=== PATIENT | male | born 1980 | race Caucasian/White ===

== ENCOUNTER → 2016-09-15 | Outpatient (CLI) | payer OTHER | END | disposition home or self-care (01) | LOC: C.PATHSPEC 18:01 | PROVIDERS: ATTEND Urology | DX: Z30.2 Encounter for sterilization (principal) ==

== ENCOUNTER 2024-05-31 09:31 | Inpatient (IN) ==
--- NOTE | 2024-05-31 09:42 | Emergency Department Note ---
Impression & Plan Community acquired pneumonia, Dyspnea, Fever ED Provider Note NAME: ANDREW FERNANDEZ AGE: 43 SEX: M : 1980 ARRIVES VIA: Walk-In INFORMANT: Patient, ED PROVIDER(S): Stuart Pineda MD CHIEF COMPLAINT: Cough, fever MEDICAL DECISION MAKING: Patient presents due to concern for cough and fever. IV was established and blood work was obtained. Patient was ordered a breathing treatment as well as a BioFire. Patient did receive a DuoNeb treatment. Patient's blood work shows a normal white count hemoglobin virtually normal with thrombocytosis of 455. Kidney function is unremarkable to electrolytes. Troponin not elevated. BioFire negative. The patient may have evidence of bilateral pneumonia. More prominent on the right side. Patient thought that he may have had an episode of syncope during the breathing treatment and a coughing fit. The patient is awake alert following commands. Episode is brief. Repeat EKG obtained and unremarkable. Patient did undergo an ambulatory pulse ox trial. Never did desat was in the low 90s at 9192% but was feeling particularly dyspneic and feeling as though he might pass out. Given these concerns he did not want a go home and requested admission. Patient was ordered IV Rocephin and p.o. doxycycline. I did speak the on-call hospital service and the patient was admitted to the medicine service after speaking with Curtis Urrutia PA-C and Dr. Stallings. Discussion w/ other healthcare providers: Anibal Urrutia PA-C and Dr. Stallings Prior /Outside records reviewed: None Differential diagnosis: Bronchitis, pneumonia, pneumothorax, pneumonitis, pleural effusion, parapneumonic effusion amongst others were considered Diagnostics, as interpreted by me: ECG: Normal sinus rhythm, rate of 96, normal intervals, normal axis no ST elevations. Repeat EKG interpreted by myself Normal sinus rhythm, rate of 90, normal intervals, normal axis no ST elevations. Cardiac monitoring: An order was placed for continuous cardiac monitoring. The monitor shows a rate of 92 with sinus rhythm. Patient was placed on pulse oximetry Medical decision rules: None Imaging studies: I informally interpreted the patient's chest x-ray does show likely right-sided pneumonia with formal report to follow. HPI: Patient presents due to concern for feeling generally unwell. The patient reports that he had some associated fever as well as cough and congestion. Patient states he initially began having symptoms on May 20 and developed a fever of 102 on the . The patient has had fever the last 3 days. Patient reports that he has been taking antipyretics at home. He has been taking some Mucinex coughing up productive thick sputum. Non-smoker. He does work outside at the skilled nursing. He was started on Augmentin through his PCP on the and subsequently added doxycycline yesterday. He reportedly did have a chest x-ray as well as blood work. Sats yesterday were 99% today they were as low as 91 to 92%. Patient denies any urinary symptoms. He denies any ear pain or sore throat. He initially did think he had some postnasal drip but it seems to be a bit deeper now into his chest. Patient denies any issues with defecation or urination no leg swelling or calf pain. PAST MEDICAL HISTORY: See Below PAST SURGICAL HISTORY: No pertinent surgical history. SOCIAL HISTORY: See Below HOME MEDICATIONS: See Below ALLERGIES: See Below VITALS: See Below PHYSICAL EXAMINATION: GENERAL: NAD, non-toxic. Wearing a mask. EYE EXAM: Normal conjunctiva. PERRL, no anisocoria and EOM's grossly intact w/o pain. OROPHARYNX: Moist mucus membranes, grossly normal dentition. NECK: Trachea midline, no stridor. Supple, no nuchal rigidity, no adenopathy, non-tender. No signs of meningismus. FROM of the neck with good chin to chest and neck extension. LUNGS: Crackles in the left upper chest. Normal chest wall mechanics. HEART: NSR, no MRG. ABDOMEN: Abdomen soft, non-tender, no masses, no rebound or guarding. BACK: No CVA TTP. SKIN: No rashes and no bruising. UPPER EXTREMITIES: Upper extremities are grossly normal. LOWER EXTREMITIES: Grossly normal, no edema. NEURO EXAM: A&O x3, cranial nerves II-XII grossly intact, normal speech, moves all 4 extremities. Past Med/Surg History Problem List (Updated 05/31/24 @ 14:12 by Stuart Pineda MD) Fever (Acute) Dyspnea (Acute) Community acquired pneumonia (Acute) Medical History Dyslipidemia JONI on CPAP Social History Smoking Status: Never smoker Feels Safe at Home: Yes Allergies Allergies Allergy/AdvReac Type Severity Reaction Status Date / Time bee venom protein (honey bee) Allergy Severe SOB/Hives/S Unverified 05/31/24 12:11 [place] Home Meds Home Medications Medication Instructions Recorded Confirmed amoxicillin 875 mg-potassium 1 tab PO BID 05/31/24 05/31/24 clavulanate 125 mg tablet ascorbic acid (vitamin C) 500 mg 500 mg PO DAILY 05/31/24 05/31/24 tablet (Vitamin C) benzonatate 100 mg capsule 100 mg PO TID PRN Cough 05/31/24 05/31/24 cholecalciferol (vitamin D3) 25 25 mcg PO DAILY 05/31/24 05/31/24 mcg (1,000 unit) tablet (Vitamin D3) coQ10 (ubiquinol) 100 mg capsule 100 mg PO BID 05/31/24 05/31/24 doxycycline hyclate 100 mg capsule 100 mg PO BID 05/31/24 05/31/24 [id number]-acetaminophen 7.5 30 ml PO HS PRN Sick/Illness 05/31/24 05/31/24 mg-60 [id number]/30mL oral liqd elderberry fruit 200 mg capsule 200 mg PO DAILY 05/31/24 05/31/24 epinephrine 0.3 mg/0.3 mL 0.3 mg IM UD PRN Allergic Reaction 05/31/24 05/31/24 injection, auto-injector flaxseed oil 1,000 mg capsule 1,000 mg PO DAILY 05/31/24 05/31/24 guaifenesin 1,200 mg tablet, 1,200 mg PO Q12H PRN Congestion 05/31/24 05/31/24 extended release 12 hr (Mucinex) ibuprofen 200 mg tablet 200 mg PO Q6H PRN Pain 05/31/24 05/31/24 melatonin 3 mg tablet 3 mg PO HS PRN Sleep 05/31/24 05/31/24 multivitamin 1 tab PO DAILY 05/31/24 05/31/24 omega 4-fgz-djd-fish oil 1,200 mg 1 cap PO DAILY 05/31/24 05/31/24 (144 mg-216 mg) capsule (Fish Oil) selenium 200 mcg tablet 200 mcg PO DAILY 05/31/24 05/31/24 turmeric 400 mg capsule 400 mg PO DAILY 05/31/24 05/31/24 vitamin K2 100 mcg capsule 100 mcg PO DAILY 05/31/24 05/31/24 Results & Data (ED) Vital Signs Vital Signs - 24 hr 05/31/24 09:34 05/31/24 09:47 05/31/24 09:50 Temperature 36.8 C Temperature Source Temporal Artery Scan Pulse Rate 118 H 100 H Pulse Rate [Apical] 95 H Pulse Rhythm Regular Pulse Rhythm [Apical] Pulse Strength Normal Pulse Strength [Apical] Normal Respiratory Rate 16 19 Respiratory Effort / Characteristics Non-Labored Spontaneous Non-Labored Spontaneous Respiratory Depth Normal Normal Respiratory Pattern Regular Regular Blood Pressure 155/91 H Blood Pressure [Right Arm] 142/87 H Blood Pressure Mean 112 Blood Pressure Mean [Right Arm] 105 Blood Pressure Position Sitting Pulse Oximetry 97 98 Oxygen Delivery Method Room Air Room Air Sepsis Recent Fever Within 48 Hours Yes Sepsis New/Unexplained Change in Mental Status No Sepsis Action Taken by Nursing No Action Required 05/31/24 10:00 05/31/24 11:27 05/31/24 12:30 Temperature 37.3 C Temperature Source Oral Pulse Rate Pulse Rate [Apical] 93 H 89 Pulse Rhythm Pulse Rhythm [Apical] Regular Pulse Strength Pulse Strength [Apical] Normal Normal Respiratory Rate 18 18 Respiratory Effort / Characteristics Non-Labored Spontaneous Non-Labored Spontaneous Respiratory Depth Normal Normal Respiratory Pattern Regular Blood Pressure Blood Pressure [Right Arm] 131/82 130/81 Blood Pressure Mean Blood Pressure Mean [Right Arm] 98 97 Blood Pressure Position Pulse Oximetry 98 94 96 Oxygen Delivery Method Room Air Room Air Room Air Sepsis Recent Fever Within 48 Hours Sepsis New/Unexplained Change in Mental Status Sepsis Action Taken by Nursing 05/31/24 13:30 05/31/24 13:54 Temperature Temperature Source Pulse Rate 93 H Pulse Rate [Apical] 74 Pulse Rhythm Pulse Rhythm [Apical] Pulse Strength Pulse Strength [Apical] Normal Respiratory Rate 16 Respiratory Effort / Characteristics Non-Labored Spontaneous Respiratory Depth Normal Respiratory Pattern Regular Blood Pressure Blood Pressure [Right Arm] 146/84 H Blood Pressure Mean Blood Pressure Mean [Right Arm] 104 Blood Pressure Position Pulse Oximetry 96 Oxygen Delivery Method Room Air Sepsis Recent Fever Within 48 Hours Sepsis New/Unexplained Change in Mental Status Sepsis Action Taken by [facility] Medications Current Medication List: was personally reviewed by me Laboratory Data Attestation: I reviewed the patient's lab results. 05/31/24 10:00 05/31/24 10:00 Lab Results 05/31/24 Range/Units 10:00 WBC 9.22 (4.8-10.8) K/ul RBC 4.44 L (4.70-6.10) M/uL Hgb 13.9 L (14.0-18.0) g/dl Hct 40.9 L (42.0-52.0) % MCV 92.1 (80.0-100.0) fL MCH 31.3 (25.0-34.0) pg MCHC 34.0 (32.0-36.0) g/dL RDW Std Deviation 39.7 (36.4-46.3) fL RDW Coeff of Janna 11.9 (11.5-14.5) % Plt Count 455 H (130-400) K/uL MPV 8.7 L (9.4-12.4) fL Immature Gran % (Auto) 0.4 % Neut % (Auto) 78.5 % Lymph % (Auto) 12.0 % [place] % (Auto) 7.5 % Eos % (Auto) 1.4 % Baso % (Auto) 0.2 % Neut # (Auto) 7.23 H (1.40-6.50) K/uL Lymph # (Auto) 1.11 L (1.20-3.40) K/uL [place] # (Auto) 0.69 H (0.11-0.59) K/uL Eos # (Auto) 0.13 (0.00-0.50) K/uL Baso # (Auto) 0.02 (0.00-0.20) K/uL Immature Gran # (Auto) 0.04 (0.01-0.20) K/uL Sodium 137 (136-145) mmol/L Potassium 4.4 (3.5-5.1) mmol/L Chloride 101 (98-107) mmol/L Carbon Dioxide 27 (21-32) mmol/L Anion Gap 9 (3-11) BUN 12 (6-23) mg/dl Creatinine 0.96 (0.6-1.4) mg/dl Est Cr Clr Drug Dosing 110.9 ml/min eGFR 100.58 BUN/Creatinine Ratio 12.5 (10-20) Glucose 107 H (70-99(Fasting)) mg/dl Calcium 9.8 (8.6-10.3) mg/dl Magnesium 2.3 (1.7-2.4) mg/dl Total Bilirubin 0.5 (0.2-1.0) mg/dl AST 21 (13-39) U/L ALT 22 (7-52) U/L Alkaline Phosphatase 68 (34-104) U/L Troponin I High Sens 12.5 (0-20) pg/ml Total Protein 8.3 (6.0-8.3) gm/dl Albumin 4.4 (3.4-5.0) gm/dl Globulin 3.9 (2.5-4.0) gm/dl Albumin/Globulin Ratio 1.1 (0.9-2) Adenovirus (PCR) Not Detected (NotDetected) B. pertussis DNA (PCR) Not Detected (NotDetected) B.parapertussis DNA PCR Not Detected (NotDetected) C. pneumoniae DNA (PCR) Not Detected (NotDetected) Coronavirus OC43 (PCR) Not Detected (NotDetected) Coronavirus HKU1 (PCR) Not Detected (NotDetected) Coronavirus 229E (PCR) Not Detected (NotDetected) SARS-CoV-2 (PCR) Not Detected (NotDetected) Coronavirus NL63 (PCR) Not Detected (NotDetected) Human Metapneumovir PCR Not Detected (NotDetected) Influenza Type A (PCR) Not Detected (NotDetected) Influenza Type B (PCR) Not Detected (NotDetected) M. pneumoniae (PCR) Not Detected (NotDetected) Parainfluenza 1 (PCR) Not Detected (NotDetected) Parainfluenza 2 (PCR) Not Detected (NotDetected) Parainfluenza 3 (PCR) Not Detected (NotDetected) Parainfluenza 4 (PCR) Not Detected (NotDetected) RSV (PCR) Not Detected (NotDetected) Entero/Rhino (PCR) Not Detected (NotDetected) Administered Medications Discontinued Medications Albuterol (Albut/Ipratrop 3mg/0.5mg Neb 3 Ml Vial) 6 ml NEB NOW STA; Protocol Stop: 05/31/24 09:52 Last Admin: 05/31/24 10:11 Dose: 6 ml Documented By: SCAR Doxycycline Hyclate (Doxycycline Hyclate 100 Mg Cap) 100 mg PO NOW STA Stop: 05/31/24 11:43 Last Admin: 05/31/24 12:02 Dose: Not Given Documented By: SCAR Ceftriaxone Sodium (Rocephin) 2,000 mg in 50 mls @ 100 mls/hr IV NOW STA Stop: 05/31/24 12:11 Last Infusion: 05/31/24 13:11 Dose: Infused Documented By: Admin: 05/31/24 12:01 Dose: 100 mls/hr Documented By: SCAR Acetaminophen (Ofirmev) 1,000 mg in 100 mls @ 400 mls/hr IV NOW STA Stop: 05/31/24 12:25 Last Infusion: 05/31/24 13:11 Dose: Infused Documented By: Admin: 05/31/24 12:34 Dose: 400 mls/hr Documented By: SCAR Sodium Chloride (Nss) 500 mls @ 999 mls/hr IV .Q31M ONE Stop: 05/31/24 12:41 Last Infusion: 05/31/24 13:11 Dose: Infused Documented By: Admin: 05/31/24 12:34 Dose: 999 mls/hr Documented By: SCAR Ketorolac Tromethamine (Ketorolac Tromethamine 15 Mg/Ml Vial) 10 mg IV NOW ONE Stop: 05/31/24 09:59 Last Admin: 05/31/24 10:08 Dose: 10 mg Documented By: SCAR Ondansetron HCl (Ondansetron Inj 2 Mg/Ml 2 Ml Vial) 4 mg IV NOW STA Stop: 05/31/24 12:12 Last Admin: 05/31/24 12:32 Dose: 4 mg Documented By: SCAR Imaging Data Radiologist's Impression: Chest X-Ray 05/31/24 09:52 XR chest 1V portable CLINICAL HISTORY: Weakness. Cough. Fever. COMPARISON STUDY: No previous studies for comparison. FINDINGS: Lung volumes are normal. There is no pneumothorax or pleural effusion. Asymmetric right hilar enlargement with suspected right perihilar opacity is present. There is also mild left basilar opacity. Cardiac size is normal. There is no evidence for pulmonary edema. IMPRESSION: 1. Asymmetric right hilar enlargement with suspected right perihilar opacity. Given the clinical history, pneumonia is favored. However, an underlying pulmonary lesion or lymphadenopathy cannot be excluded. Follow-up PA and lateral chest radiographs in one month to ensure resolution are recommended. 2. Left basilar opacity which could be infectious or atelectatic. ACT 112: Positive. There are findings on this exam that require communication between the performing entity and the patient following Patient Test Result Information Act ([place] Act 112) guidelines. Electronically signed by: Quinten Gifford M.D. 05/31/2024 10:17 AM Discharge Plan Visit Data Chief Complaint: Illness Stated Complaint: FEVER, ON ANTIBIBOTICS ED Provider: Stuart Pineda Discharge Problem: Community acquired pneumonia, Dyspnea, Fever Forms Stand Alone Forms: [facility] [place] Prescriptions Prescriptions: No Action multivitamin Tablet 1 tab PO DAILY doxycycline hyclate 100 mg capsule 100 mg PO BID Rx Instructions: Start Date 05/30/24 x10 day supply NyQuil 7.5-60-30-1,000 mg/30 mL Liquid 30 ml PO HS PRN (Reason: Sick/Illness) melatonin 3 mg Tablet 3 mg PO HS PRN (Reason: Sleep) selenium 200 mcg Tablet 200 mcg PO DAILY flaxseed oil 1,000 mg Capsule 1,000 mg PO DAILY Rx Instructions: administer with a meal ascorbic acid (vitamin C) [Vitamin C] 500 mg Tablet 500 mg PO DAILY benzonatate 100 mg capsule 100 mg PO TID PRN (Reason: Cough) ibuprofen 200 mg Tablet 200 mg PO Q6H PRN (Reason: Pain) epinephrine 0.3 mg/0.3 mL auto-injector 0.3 mg IM UD PRN (Reason: Allergic Reaction) amoxicillin-pot clavulanate 875-125 mg tablet 1 tab PO BID Rx Instructions: Start Date 05/26/24 x10 day supply Elderberry 200 mg Capsule 200 mg PO DAILY cholecalciferol (vitamin D3) [Vitamin D3] 25 mcg (1,000 unit) Tablet 25 mcg PO DAILY guaifenesin [Mucinex] 1,200 mg Tablet Extended Release 12hr 1,200 mg PO Q12H PRN (Reason: Congestion) omega 5-eqz-zaa-fish oil [Fish Oil] 1,200 (144-216) mg Capsule 1 cap PO DAILY coQ10 (ubiquinol) 100 mg Capsule 100 mg PO BID turmeric 400 mg Capsule 400 mg PO DAILY vitamin K2 100 mcg Capsule 100 mcg PO DAILY Referrals Referrals: Panda Banegas MD [Primary Care Provider] - Discharge Problem: Community acquired pneumonia Qualifiers: Laterality: right Lung location: middle lobe of lung Qualified Code(s): J18.9 - Pneumonia, unspecified organism Dyspnea Qualifiers: Dyspnea type: dyspnea on exertion Qualified Code(s): R06.09 - Other forms of dyspnea Fever Qualifiers: Fever type: due to other condition Qualified Code(s): R50.81 - Fever presenting with conditions classified elsewhere
[2024-05-31] MEDS: KETOROLAC TROMETHAMINE 15 MG/ML VIAL IV ONE (10:08)
[2024-05-31] MEDS: ALBUT/IPRATROP 3MG/0.5MG NEB 3 ML VIAL NEB STA (10:11)
--- NOTE | 2024-05-31 10:19 | XRay Report ---
XR chest 1V portable CLINICAL HISTORY: Weakness. Cough. Fever. COMPARISON STUDY: No previous studies for comparison. FINDINGS: Lung volumes are normal. There is no pneumothorax or pleural effusion. Asymmetric right hil ar enlargement with suspected right perihilar opacity is present. There is also mild left basilar opa city. Cardiac size is normal. There is no evidence for pulmonary edema. IMPRESSION: 1. Asymmetric right hilar enlargement with suspected right perihilar opacity. Given the clinical hist ory, pneumonia is favored. However, an underlying pulmonary lesion or lymphadenopathy cannot be exclu ded. Follow-up PA and lateral chest radiographs in one month to ensure resolution are recommended. 2. Left basilar opacity which could be infectious or atelectatic. ACT 112: Positive. There are findings on this exam that require communication between the performing entity and the patient following Patient Test Result Information Act ([place] Act 112) guidelines. Electronically signed by: Quinten Gifford M.D. 05/31/2024 10:17 AM
[2024-05-31 10:38] LABS: Basophils # (auto) 0.02 K/uL (0.00-0.20); Basophils % (auto) 0.2 %; Eosinophils # (auto) 0.13 K/uL (0.00-0.50); Eosinophils % (auto) 1.4 %; Hematocrit (blood only) 40.9 % (42.0-52.0); Hemoglobin 13.9 g/dl (14.0-18.0); Immature Granulocytes # (auto) 0.04 K/uL (0.01-0.20); Immature Granulocytes % (auto) 0.4 %; Lymphocytes # (auto) 1.11 K/uL (1.20-3.40); Mean Corpuscular Hemoglobin 31.3 pg (25.0-34.0); Mean Corpuscular Volume 92.1 fL (80.0-100.0); Mean Platelet Volume 8.7 fL (9.4-12.4); Monocytes # (auto) 0.69 K/uL (0.11-0.59); Monocytes % (auto) 7.5 %; Neutrophils # (auto) 7.23 K/uL (1.40-6.50); Neutrophils % (auto) 78.5 %; Platelet Count 455 K/uL (130-400); RDW Coefficient of Variation 11.9 % (11.5-14.5); RDW Standard Deviation 39.7 fL (36.4-46.3); Red Blood Count 4.44 M/uL (4.70-6.10); White Blood Count 9.22 K/ul (4.8-10.8)
[2024-05-31 10:55] LABS: Albumin Globulin Ratio 1.1 (0.9-2); Albumin Level 4.4 gm/dl (3.4-5.0); BUN Creatinine Ratio 12.5 (10-20); Bilirubin,Total 0.5 mg/dl (0.2-1.0); Calcium 9.8 mg/dl (8.6-10.3); Creatinine Clr Calc Pharmacy 110.9 ml/min; Globulin 3.9 gm/dl (2.5-4.0); Magnesium 2.3 mg/dl (1.7-2.4); Potassium 4.4 mmol/L (3.5-5.1); Total Protein 8.3 gm/dl (6.0-8.3)
[2024-05-31 11:01] LABS: Troponin I High Sensitivity 12.5 pg/ml (0-20)
[2024-05-31 11:07] LABS: Adenovirus PCR Not Detected (NotDetected); Bordetella parapertussis PCR Not Detected (NotDetected); Bordetella pertussis PCR Not Detected (NotDetected); Chlamydia pneumoniae PCR Not Detected (NotDetected); Coronavirus 229E PCR Not Detected (NotDetected); Coronavirus CoV-2 (COVID19)PCR Not Detected (NotDetected); Coronavirus HKU1 PCR Not Detected (NotDetected); Coronavirus NL63 PCR Not Detected (NotDetected); Coronavirus OC43PCR Not Detected (NotDetected); Human Metapneumovirus PCR Not Detected (NotDetected); Influenza A PCR Not Detected (NotDetected); Influenza B PCR Not Detected (NotDetected); Mycoplasma pneumoniae PCR Not Detected (NotDetected); Parainfluenza Virus 1 PCR Not Detected (NotDetected); Parainfluenza Virus 2 PCR Not Detected (NotDetected); Parainfluenza Virus 3 PCR Not Detected (NotDetected); Parainfluenza Virus 4 PCR Not Detected (NotDetected); Respiratory Syncytial VirusPCR Not Detected (NotDetected); Rhinovirus/Enterovirus PCR Not Detected (NotDetected)
[2024-05-31] MEDS: cefTRIAXone SODIUM 2,000 MG/50 ML BAG IV STA (12:01)
[2024-05-31] MEDS: DOXYCYCLINE HYCLATE 100 MG CAP PO STA (12:02)
--- NOTE | 2024-05-31 12:23 | History & Physical Report ---
Date of Service May 31, 2024 Assessment & Plan (1) Community acquired pneumonia: Plan Edmar Chin is a 43y/o M with PMHx significant for dyslipidemia, chronic rhinitis and JONI on CPAP who presented to the ED for evaluation of intermittent fevers/productive cough and was found to have pneumonia. Community-Acquired Pneumonia: No hypoxia nor leukocytosis, no evidence of sepsis on admission. Biofire negative. CXR --> R perihilar opacity favoring pneumonia, L basilar opacity +/- infectious vs atelectatic. S/p 2g IV Rocephin in the ED. Continue IV Rocephin + po doxycycline. Sputum culture pending. Probiotic added on. PRN Delsym. Scheduled Mucinex. Pulm toilet w/ incentive spirometry, flutter valve and nebs. Other Chronic Medical Conditions: JONI --> Continue CPAP HS. No other home medications to be continued at this time. DVT Prophylaxis: SQ Lovenox Code Status: FULL CODE PCP: Panda Banegas MD Disposition: Admit to Med/Tele, likely to be hospitalized for 2-3 days depending on his clinical course. Patient seen in collaboration with Dr. Stallings. Please see addendum. I spent a total of 45 minutes coordinating, documenting, and providing care for this patient excluding time spent in the performance of separately billed services. This included personally reviewing all current laboratories and imaging studies, medical reconciliation, outpatient chart review and discussion with specialists. This chart was completed in part utilizing Speech Voice Recognition Software. Grammatical errors, random word insertions, pronoun errors, and incomplete sentences are an occasional consequence of this system due to software limitations, ambient noise, and hardware issues. Any formal questions or concerns about the content, text, or information contained within the body of this dictation should be directly addressed to the provider for clarification. History of Present Illness Chief Complaint: Intermittent Fevers/Productive Cough Primary Care Provider: Panda Banegas MD Edmar Chin is a 43y/o M with PMHx significant for dyslipidemia, chronic rhinitis and JONI on CPAP who presented to the ED for evaluation of intermittent fevers and productive cough. History obtained from patient, at bedside and associated chart review. Patient seen at bedside with Dr. Stallings. Patient has been dealing with intermittent fevers and an ongoing productive cough since the 8th of this month. Most recent fever was 101F this morning. He was started on a 10-day oral Augmentin course on the in addition to a 10- day oral doxycycline course just yesterday. He has been lethargic and feeling weak since this all started. He has been feeling dizzy following coughing spells; he had passed his ambulatory trial in the ED however he was tachypneic and presyncopal per discussion with the ED provider. He has not been hypoxic however. He endorses some chest discomfort and chest congestion as well as pain in his right chest wall from coughing. No vomiting except some phlegm production. Some headaches and mild sinus congestion which he has been taking Sudafed for without much improvement. No sore throat. He has been dealing with some diarrhea since starting the Augmentin but denies any urinary issues. Patient works at [employer] --> he works nightshift outside. No smoking history, rare alcohol use. No recreational drug use or medication allergies that he is aware of. No prior oxygen use at home but he does use a CPAP at night for JONI. Allergies Allergy/AdvReac Type Severity Reaction Status Date / Time bee venom protein (honey bee) Allergy Severe SOB/Hives/S Unverified 05/31/24 12:11 welling Home Medications Medication Instructions Recorded Confirmed Type amoxicillin 875 mg-potassium 1 tab PO BID 05/31/24 05/31/24 History clavulanate 125 mg tablet ascorbic acid (vitamin C) 500 mg 500 mg PO DAILY 05/31/24 05/31/24 History tablet (Vitamin C) benzonatate 100 mg capsule 100 mg PO TID PRN Cough 05/31/24 05/31/24 History cholecalciferol (vitamin D3) 25 25 mcg PO DAILY 05/31/24 05/31/24 History mcg (1,000 unit) tablet (Vitamin D3) coQ10 (ubiquinol) 100 mg capsule 100 mg PO BID 05/31/24 05/31/24 History doxycycline hyclate 100 mg capsule 100 mg PO BID 05/31/24 05/31/24 History sijxamasj-DSE-CX-acetaminophen 7.5 30 ml PO HS PRN Sick/Illness 05/31/24 05/31/24 History mg-60 [id number]/30mL oral liqd elderberry fruit 200 mg capsule 200 mg PO DAILY 05/31/24 05/31/24 History epinephrine 0.3 mg/0.3 mL 0.3 mg IM UD PRN Allergic Reaction 05/31/24 05/31/24 History injection, auto-injector flaxseed oil 1,000 mg capsule 1,000 mg PO DAILY 05/31/24 05/31/24 History guaifenesin 1,200 mg tablet, 1,200 mg PO Q12H PRN Congestion 05/31/24 05/31/24 History extended release 12 hr (Mucinex) ibuprofen 200 mg tablet 200 mg PO Q6H PRN Pain 05/31/24 05/31/24 History melatonin 3 mg tablet 3 mg PO HS PRN Sleep 05/31/24 05/31/24 History multivitamin 1 tab PO DAILY 05/31/24 05/31/24 History omega 2-ool-xlo-fish oil 1,200 mg 1 cap PO DAILY 05/31/24 05/31/24 History (144 mg-216 mg) capsule (Fish Oil) selenium 200 mcg tablet 200 mcg PO DAILY 05/31/24 05/31/24 History turmeric 400 mg capsule 400 mg PO DAILY 05/31/24 05/31/24 History vitamin K2 100 mcg capsule 100 mcg PO DAILY 05/31/24 05/31/24 History Past Med/Surg History Problem List Community acquired pneumonia Medical History Dyslipidemia JONI on CPAP Social History Smoking Status: Never smoker Feels Safe at Home: Yes Review of Systems Review of Systems: At least ten systems reviewed and negative, except as noted in the HPI. Physical Exam Physical Exam: Please refer to Dr. Stallings's addendum for physical examination findings. Results & Data Results & Data Vital Signs (Past 12 Hours) Vital Signs Temp Pulse Pulse Resp BP BP Pulse Ox 05/31/24 11:27 37.3 C 93 H 18 131/82 94 05/31/24 10:00 98 05/31/24 09:50 95 H 19 142/87 H 98 05/31/24 09:47 100 H 05/31/24 09:34 36.8 C 118 H 16 155/91 H 97 O2 Del Method 05/31/24 11:27 Room Air 05/31/24 10:00 Room Air 05/31/24 09:50 Room Air 05/31/24 09:47 05/31/24 09:34 Room Air Laboratory Results Short CBC 05/31/24 Range/Units 10:00 WBC 9.22 (4.8-10.8) K/ul Hgb 13.9 L (14.0-18.0) g/dl Hct 40.9 L (42.0-52.0) % Plt Count 455 H (130-400) K/uL BMP 05/31/24 10:00 Sodium 137 Potassium 4.4 Chloride 101 Carbon Dioxide 27 BUN 12 Creatinine 0.96 Glucose 107 H Calcium 9.8 Liver Function 05/31/24 Range/Units 10:00 Total Bilirubin 0.5 (0.2-1.0) mg/dl AST 21 (13-39) U/L ALT 22 (7-52) U/L Alkaline Phosphatase 68 (34-104) U/L Albumin 4.4 (3.4-5.0) gm/dl Diagnostic Findings Chest X-Ray 05/31/24 09:52 XR chest 1V portable CLINICAL HISTORY: Weakness. Cough. Fever. COMPARISON STUDY: No previous studies for comparison. FINDINGS: Lung volumes are normal. There is no pneumothorax or pleural effusion. Asymmetric right hilar enlargement with suspected right perihilar opacity is present. There is also mild left basilar opacity. Cardiac size is normal. There is no evidence for pulmonary edema. IMPRESSION: 1. Asymmetric right hilar enlargement with suspected right perihilar opacity. Given the clinical history, pneumonia is favored. However, an underlying pulmonary lesion or lymphadenopathy cannot be excluded. Follow-up PA and lateral chest radiographs in one month to ensure resolution are recommended. 2. Left basilar opacity which could be infectious or atelectatic. ACT 112: Positive. There are findings on this exam that require communication between the performing entity and the patient following Patient Test Result Information Act ([place] Act 112) guidelines. Electronically signed by: Quinten Gifford M.D. 05/31/2024 10:17 AM Medications Administered Discontinued Medications Albuterol (Albut/Ipratrop 3mg/0.5mg Neb 3 Ml Vial) 6 ml NEB NOW STA; Protocol Stop: 05/31/24 09:52 Last Admin: 05/31/24 10:11 Dose: 6 ml Documented By: SCAR Doxycycline Hyclate (Doxycycline Hyclate 100 Mg Cap) 100 mg PO NOW STA Stop: 05/31/24 11:43 Last Admin: 05/31/24 12:02 Dose: Not Given Documented By: SCAR Ceftriaxone Sodium (Rocephin) 2,000 mg in 50 mls @ 100 mls/hr IV NOW STA Stop: 05/31/24 12:11 Last Admin: 05/31/24 12:01 Dose: 100 mls/hr Documented By: SCAR Acetaminophen (Ofirmev) 1,000 mg in 100 mls @ 400 mls/hr IV NOW STA Stop: 05/31/24 12:25 Last Admin: 05/31/24 12:34 Dose: 400 mls/hr Documented By: SCAR Sodium Chloride (Nss) 500 mls @ 999 mls/hr IV .Q31M ONE Stop: 05/31/24 12:41 Last Admin: 05/31/24 12:34 Dose: 999 mls/hr Documented By: SCAR Ketorolac Tromethamine (Ketorolac Tromethamine 15 Mg/Ml Vial) 10 mg IV NOW ONE Stop: 05/31/24 09:59 Last Admin: 05/31/24 10:08 Dose: 10 mg Documented By: SCAR Ondansetron HCl (Ondansetron Inj 2 Mg/Ml 2 Ml Vial) 4 mg IV NOW STA Stop: 05/31/24 12:12 Last Admin: 05/31/24 12:32 Dose: 4 mg Documented By: SCAR Code Status & VTE Plan Code Status FULL CODE Supervising Physician Co-Signing Physician Notes 43 year old man with h/o JONI on CPAP HS who presents with productive cough and intermittent fevers since 05/20/24 Associated with headache, fever, weakness, chest discomfort, dizziness Had been on antibiotics for few days (Augmentin/doxy) but been worsening No sick contacts. Does not smoke On exam, General: Not in distress Eyes: PERRL, conjunctivae normal, not pale, anicteric sclerae, EOM intact bilaterally ENMT: External ear and nose normal, oropharynx normal Respiratory: Normal respiratory effort, no respiratory distress, few crackles, +cough Cardiovascular: RRR S1 S2 Gastrointestinal (Abdomen): Abdomen is not distended, soft, non-tender to palpation, no guarding, no palpable hepatosplenomegaly, normal bowel sounds Musculoskeletal: No pedal edema Neurologic: Alert and oriented x 3, No focal weakness, sensation grossly intact Psychiatric: Euthymic affect Lab reviewed. Resp PCR negative CXR noted right perihilar opacity and left basilar opacity Community acquired pneumonia No leukocytosis or hypoxia at this time IV ceftriaxone + doxycycline Antitussives prn Monitor clinical improvement Get sputum cx Use CPAP HS I spent a total of 50 minutes coordinating, documenting and providing care for this patient excluding time spent in performance of separately billed services Agree with plans as detailed by Mayte Holland PA-C and take full responsibility (1) Community acquired pneumonia Laterality: unspecified laterality Qualified Code(s): J18.9 - Pneumonia, unspecified organism
[2024-05-31] MEDS: ONDANSETRON INJ 2 MG/ML 2 ML VIAL IV STA (12:32)
[2024-05-31] MEDS: ACETAMINOPHEN 1,000 MG/100 ML VIAL IV STA (12:34)
[2024-05-31] MEDS: SODIUM CHLORIDE 0.9% 500 ML IV ONE (12:34)
[2024-05-31] MEDS: IBUPROFEN 800 MG TAB PO STA (14:32)
[2024-05-31] MEDS ORDERED: ONDANSETRON INJ 2 MG/ML 2 ML VIAL IV PRN (16:55)
[2024-05-31] MEDS ORDERED: DEXTROMETHORPHAN POLYMR COMPLX 30 MG/5 ML UDP PO PRN (16:55)
[2024-05-31] MEDS ORDERED: MAGNESIUM HYDROXIDE SUSP 30 ML UDC PO PRN (16:55)
[2024-05-31] MEDS ORDERED: POLYETHYLENE (MIRALAX) 17 GM PACK PO PRN (16:55)
[2024-05-31] MEDS: ALBUT/IPRATROP 3MG/0.5MG NEB 3 ML VIAL NEB SCH (17:12)
[2024-05-31] MEDS: ENOXAPARIN INJ 40 MG/0.4 ML SYR SQ SCH (17:42)
[2024-05-31] MEDS: ADVANCED PROBIOTIC 625 MG CAPSULE PO SCH (17:48)
--- NOTE | 2024-05-31 18:22 | Electrocardiogram Report ---
Test Reason : Blood Pressure : */* mmHG Vent. Rate : 90 BPM Atrial Rate : 90 BPM P-R Int : 148 ms QRS Dur : 88 ms QT Int : 368 ms P-R-T Axes : 29 34 20 degrees QTcB Int : 450 ms Normal sinus rhythm Possible Left atrial enlargement Borderline ECG When compared with ECG of 31-May-2024 09:47, No significant change was found Confirmed by Balta Landaverde ([id number]) on 05/31/2024 6:22:43 PM Referred By: REFERRED SELF Confirmed By: Balta Landaverde
--- NOTE | 2024-05-31 18:22 | Electrocardiogram Report ---
Test Reason : Blood Pressure : */* mmHG Vent. Rate : 96 BPM Atrial Rate : 96 BPM P-R Int : 142 ms QRS Dur : 86 ms QT Int : 348 ms P-R-T Axes : 37 40 26 degrees QTcB Int : 439 ms Normal sinus rhythm Possible Left atrial enlargement Borderline ECG No previous ECGs available Confirmed by Balta Landaverde ([id number]) on 05/31/2024 6:22:32 PM Referred By: REFERRED SELF Confirmed By: Balta Landaverde
--- OUTSIDE RECORDS SUMMARY | 2024-05-31 19:26 | External Medical Summary | Summary of Care ---
Author Name Unknown Organization [facility] Address [address] [place] [address] Phone [phone] Care Team Providers Care Drum Attendant Name Role Phone Panda Banegas MD Primary Care Provider [phone] Reason for Visit * Reason Comments Acute Patient is here toda y due to a cough, fever, and sinus drainage. Patient states he has been taking OTC medication that has been controlling his fever but not the cough. Patient states his fever has been running around 102 Patient states he is getting a "strange" sensation from a cough due to being light headed and dizzy. Patient states he felt he was going to pass out yesterday from coughing. Patient has been symptomatic since May 20 and has not been fever free since. Encounter Details Date Type Department Care Team (Late st Contact Info) Description 05/30/2024 3:40 PM EST Office Visit [facility] [address] [place] [address] Cornelio Garcia MD [address], [place] [id number] Pneumonia of lower lobe due to infectious organism, unspecified laterality* Allergies Active Allergy Reactions Criticality Noted Date Comments Bee Venom Hives High 06/29/2015 Levofloxacin High 09/04/2020 Nausea with extreme vomiting, gi tract pain, felt like he could pass out Naproxen 09/04/2020 After 3 days had gi impact documented as of this encounter (statuses as of 05/30/2024) Medications fluticasone (FLONASE) 50 MCG/ACT nasal spray Administer 2 Sprays into each nostril daily. 16 mL 2 9 Active Indomethacin 50 MG Oral CapsuleIndicati ons:Internal derangement of both knees Take 1 Cap by mouth 3 times a day as needed for Pain. with food 40 Cap 1 1 Active Benzonatate 100 MG Oral Capsule Take 1 Capsule by mouth 3 times a day as needed for Cough. 30 Capsule 1 4 Active EPINEPHrine 0.3 MG/0.3ML Injection Solution Auto-injector (Autoinjector)I ndications:Bee sting allergy For a severe reaction: Inject in outer thigh following instructions on package and go to the Emergency room. 2 Each 1 4 Active Amoxicillin-Pot Clavulanate 875-125 MG Oral Tablet (Augmentin) Take 1 Tablet by mouth in the morning and 1 Tablet before bedtime. Do all this for 10 days. 20 Tablet 4 06/05/20 24 Active Turmeric 400 MG Oral Capsule Active Selenium 200 MCG Oral Capsule Active Quercetin 500 MG Oral Capsule Acti ve Vitamin K1 1 MG/0.5ML Injection Solution 4 Active Fish Oil 1200 MG Oral Capsule Acti ve Melatonin 3 MG Oral Tablet Active Cholecalciferol 50 MCG (2000 UT) Oral Tablet Acti ve Vitamin C 500 MG Oral Tablet (Ascorbic Acid) Acti ve Acetylcysteine 600 MG Oral Capsule (NAC) Active Doxycycline Hyclate 100 MG Oral CapsuleIndicati ons:Pneumonia of lower lobe due to infectious organism, unspecified laterality Take 1 Capsule by mouth in the morning and 1 Capsule before bedtime. Do all this for 10 days. Until gone.. 20 Capsule 4 06/09/20 24 Active documented as of this encounter (statuses as of 05/30/2024) Active Problems Problem Noted Date Diagnosed Date JONI on CPAP 09/11/2015 Chronic rhinitis 07/27/2014 Memory problem 07/27/2014 Sleep disturbance 07/27/2014 Leg edema, right 03/06/2014 Screening for cardiovascular condition 2 Dyslipidemia, goal LDL below 160 11/11/2011 documented as of this encounter (statuses as of 05/30/2024) Resolved Problems Problem Noted Date Diagnosed Date Resolved Date Viral URI with cough 12/03/2014 021 Otalgia of both ears 07/27/2014 021 Dysfunction of eustachian tube 07/27/2014 09/04/2020 Sleep disturbance 07/27/2014 09/04/2020 Local reaction to bee sting 03/06/2014 09/04/2020 Shoulder joint pain 12/02/2011 09/04/19 21 Dyslipidemia, goal LDL below 100 05/22/2016 documented as of this encounter (statuses as of 05/30/2024) Immunizations Name Administration Dates Next Due Anthrax Vaccine 09/26/2008, 8,04/14/2008,2007 Anthrax Vaccine, Adjuvanted (Cyfendus) 09/26/2008,04/28/2008,04/14/2008,2007 COVID-19 mRNA, LNP-s, No Pre serve, 2-Dose Series (LIFT12) 06/13/2021,10/20/2020,09/29/2020 H1N1 2009 Influenza, IM 08/05/2009 HEP A - Hepatitis A (Adult > 18 yrs) 03/17/2008,09/24/2007 Hepatitis B, 20+ yrs 09/26/2008,03/17/2008,09/23 IPV - Polio Virus Vaccine (Inact) 12/12/1999,05/1999 Influenza Vaccine, Live, Intranasal, Trivalent (Flumist) 05/13/2014,08/05/2009,04/14/2008 MMR - Measles/Mumps/Rubella Vaccine 12/12/1999 OPV - Polio Virus Vaccine (Oral) 12/21/1998 PPD 03/22/2009,03/15/2008 Seasonal Influenza Vac., MDV , IM, 0.5 mL (Fluzone) 05/04/2016,04/15/2013 Seasonal Influenza, PF, 6 M & above, IM , (FluLaval or Fluzone) 04/13/2021,03/31/2020,05/07/2018 Seasonal Influenza, Quadriva lent, No Preserve, IM 03/13/2015 Seasonal Influenza, Trivalen t, (IIV3), PF, (Fluzone) 03/29/2011,05/18/2010 TD - Tetanus/Diptheria (ADULT) 12/12/1999 TDAP (age 10 and older)(Boostrix) 12/24/2023,02/201310/18/2022 Typhoid Parenteral 03/17/2008 Typhoid VICPs Parenteral, 2 years and above (Typhim ) 03/17/2008 Vaccinia (Smallpox) 04/14/2008 documented as of this encounter Social History Tobacco Use Types Packs/Day Years Used Date Smoking Tobacco: Never Passive Smoke Exposure: Past Smokeless Tobacco: Never Alcohol Use Standard Drinks/Week Comments Yes 0 (1 standard drink = 0.6 oz pur e alcohol) 2 times a month PHQ-2 Answer Date Recorded PHQ Adult Total Score 0 12/24/2023 Hunger Vital Sign Answer Date Recorded Within the past 12 months, y ou worried that your food would run out before you got the money to buy more. Patient declined Within the past 12 months, t he food you bought just didn't last and you didn't have money to get more. Patient declined Childcare Answer Date Recorded Do you feel overwhelmed with taking care of a child, family member or friend? No 12/24/2023 Does your family need help f inding childcare? (Household - for ages 0-17 years) Not on file 12/24/2023 Clothing Answer Date Recorded Have you been unable to get clothing when it was really needed? No 12/24/2023 Is your family able to get c lothes or diapers when needed? (Household - for ages 0-17 years) Not on file 12/24/2023 Personal Safety Answer Date Recorded Do you feel unsafe or have concerns for your saf ety? No 12/24/2023 Do you have concerns for you r family's safety? (Household - for ages 0-17 years) Not on file 12/24/2023 Utilities Answer Date Recorded Do you have trouble paying y our heating, water, or electric bill? No 12/24/2023 Is your family able to pay t he heat, water, or electric bill? (Household - for ages 0-17 years) Not on file 12/24/2023 Does your family have access to good internet? (Household - for ages 0-17 years) Not on file 12/24/2023 Employment Status Answer Date Recorded Are you unemployed or without regular income? No 12/24/2023 Does the household have a re gular source of income? (Household - for ages 0-17 years) Not on file 12/24/2023 Social Connections Answer Date Recorded How often do you feel lonely or isolated from th ose around you? Never 12/24/2023 Financial Resource Strain Answer Date R ecorded Do you have any trouble payi ng for your medications, or do you think you might in the future? No 12/24/2023 Does your family have troubl e paying for medicine? (Household - for ages 0-17 years) Not on file 12/24/2023 Transportation Needs Answer Date Record ed READ ONLY Do you have troubl e getting a ride to medical visits or work? Never True 12/24/2023 Does your family have a hard time getting a ride to doctors visits? (Household - for ages 0-17 years) Not on file 12/24/2023 Has lack of transportation k ept you from medical appointments, meetings, work, or from getting things needed for daily living? Check all that apply. (Adult - for ages 18 years and over) Not on file 12/24/2023 Do you (or your family) have trouble finding or paying for a ride (transportation)? (Household - for ages 0-17 years) Not on file 12/24/2023 Housing Stability Answer Date Recorded Do you currently live in a s helter or have no steady place to sleep at night? No 12/24/2023 READ ONLY Do you think you a re at risk of becoming homeless? No 12/24/2023 Does your family worry about paying for your home or becoming homeless? (Household - for ages 0-17 years) Not on file 0 12/24/2023 Are you homeless or worried that you might be in the future? (Adult - for ages 18 years and over) Not on file Are you (or your family) ryan eless or worried that you might be in the future? (Household - for ages 0-17 years) Not on file Food Insecurity Answer Date Recorded Do you need food for this week? No 12/24/2023 Are you able to get enough f ood for your family? (Household - for ages 0-17 years) Not on file 12/24/2023 Does your family need food t his week? (Household - for ages 0-17 years) Not on file 12/24/2023 Do you always have enough fo od for your family? (Household - for ages 0-17 years) Not on file 12/24/2023 Sex and Gender Information Value Date Recorded Sex Assigned at Male 12/24/2023 10:11 AM EDT Legal Sex Male 6:57 AM EST Gender Identity Male 12/24/2023 10:11 AM EDT Sexual Orientation Straight 12/24/2023 10 :11 AM EDT documented as of this encounter Last Filed Vital Signs Vital Sign Reading Time Taken Comments Blood Pressure 124/72 05/30/2024 4:14 PM EST Pulse 126 05/30/2024 4:14 PM EST Temperature 36.7 C (98.1 F) 05/30/2024 4:14 PM ES T Respiratory Rate 18 05/30/2024 4:14 PM EST Oxygen Saturation 99% 05/30/2024 4:14 PM EST Inhaled Oxygen Concentration - - Weight 94.3 kg (207 lb 12.8 oz) 05/30/2024 4:14 PM EST Height 177.8 cm (5' 10") 05/30/2024 4:14 PM EST Body Mass Index 29.82 05/30/2024 4:14 PM EST documented in this encounter Progress Notes * Cronelio Garcia MD - 05/30/2024 4:24 PM EST Subjective: Edmar Chin is a 43 year old male. Chief Complaint Patient presents with Acute Patient is here today due to a cough, fever, and sinus drainage. Patient states he has been taking OTC medication that has been controlling his fever but not the cough. Patient states his fever has been running around 102 Patient states he is getting a "strange" sensation from a cough due to being light headed and dizzy. Patient states he felt he was going to pass out yesterday from coughing. Patient has been symptomatic since May 20 and has not been fever free since. HPI: 43-year-old who generally has good health has been sick now for about 10 or 11 days. He has had repeated fever as high as 102.7 including ongoing fever after starting Augmentin therapy 4 days ago. At that time he was seen by Dr. Manzo and diagnosed with bronchitis and started on Augmentin. He has had persistent cough. He has had varying degrees of sinus/nasal drainage but that has not been hispredominant symptom. He has been using Sudafed. He has been more substantially bothered by overwhelming fatigue and cough and fever. He did do a COVID test early on which was negative. 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 He is not aw are of any rash. Not aware of any recent tick bites. Patient Active Problem List Diagnosis Screening for cardiovascular condition Leg edema, right Chronic rhinitis Memory problem Sleep disturbance Dyslipidemia, goal LDL below 160 JONI on CPAP Current Outpatient Medications Medication Sig Dispense Refill fluticasone (FLONASE) 50 MCG/ACT nasal spray Administer 2 Sprays into each nostril daily. 16 mL 2 Indomethacin 50 MG Oral Capsule Take 1 Cap by mouth 3 times a day as needed for Pain. with food 40 Cap 1 Benzonatate 100 MG Oral Capsule Take 1 Capsule by mouth 3 times a day as needed for Cough. 30 Capsule 1 EPINEPHrine 0.3 MG/0.3ML Injection Solution Auto-injector (Autoinjector) For a severe reaction: Inject in outer thigh following instructions on package and go to the Emergency room. 2 Each 1 Amoxicillin-Pot Clavulanate 875-125 MG Oral Tablet (Augmentin) Take 1 Tablet by mouth in the morning and 1 Tablet before bedtime. Do all this for 10 days. 20 Tablet 0 Turmeric 400 MG Oral Capsule Selenium 200 MCG Oral Capsule Quercetin 500 MG Oral Capsule Vitamin K1 1 MG/0.5ML Injection Solution Fish Oil 1200 MG Oral Capsule Melatonin 3 MG Oral Tablet Cholecalciferol 50 MCG (2000 UT) Oral Tablet Vitamin C 500 MG Oral Tablet (Ascorbic Acid) Acetylcysteine 600 MG Oral Capsule (NAC) Doxycycline Hyclate 100 MG Oral Capsule Take 1 Capsule by mouth in the morning and 1 Capsule beforebedtime. Do all this for 10 days. Until gone.. 20 Capsule 0 No current facility-administered medications for this visit. Review of patient's allergies indicates: Allergen Reactions Bee Venom Hives Levaquin [Levofloxacin] Nausea with extreme vomiting, gi tract pain, felt like he could pass out Naproxen After 3 days had gi impact Objective: BP 124/72 (BP Site: Right Arm, BP Position: Sitting, BP Cuff Size: Regular) | Pulse 126 | Temp 36.7C (98.1 F) (Tympanic) | Resp 18 | Ht 1.778 m (5' 10") | Wt 94.3 kg (207 lb 12.8 oz) | SpO2 99%| BMI 29.82 kg/m | BSA 2.16 m Physical Exam: CONST: Ill-appearing although not appearing in respiratory distress HEAD: normocephalic, atraumatic NECK: supple, soft, no adenopathy Eyes - PERRLA, EOM'I OROPHARYNX difficult to get a good look at the posterior pharynx CV: Rapid rate and regular rhythm, no murmur CHEST: There was some crackles in the left lower in mid lung field. Also breath sounds were more. ABD: soft, non tender, non distended, no masses or hepatosplenomegaly ASSESSMENT/PLAN: Pneumonia of lower lobe due to infectious organism, unspecified laterality (Primary) - Doxycycline Hyclate 100 MG Oral Capsule; Take 1 Capsule by mouth in the morning and 1 Capsule before bedtime. Do all this for 10 days. Until gone.. - XR CHEST 2 VIEWS; Future; Expected date: 05/30/2024 - RETURN TO WORK OR SCHOOL He is going to return tomorrow in get a CBC with diff and Lyme test I did tell him today that I thought that he was sick enough that he could be evaluated in the Emergency Room in may need to be admitted to the hospital. I did give him the option of going to the ER or trying to treat on outpatient basis as noted above in he wants to see how he does with the addition of doxycycline in in get the chest x-ray and lab work. He agrees that if he is not feeling better in 24 hours he will go to the Emergency Room. Cornelio Garcia MD documented in this encounter Nursing Notes * Anahy EstevezCAROL - 05/30/2024 4:17 PM EST The patient has been properly identified by confirmation of name and date of . Chief Complaint Patient presents with Acute Patient is here today due to a cough, fever, and sinus drainage. Patient states he has been taking OTC medication that has been controlling his fever but not the cough. Patient states his fever has been running around 102 Patient states he is getting a "strange" sensation from a cough due to being light headed and dizzy. Patient states he felt he was going to pass out yesterday from coughing. Patient has been symptomatic since May 20 and has not been fever free since. documented in this encounter Plan of Treatment Upcoming Encounters Date Type Department Care Team (Late st Contact Info) Description 01/03/2025 1:40 PM EDT Office Visit [facility] [address] [place] [address] Panda Banegas MD [address] [place] [address] Pending Results Name Type Priority Associated Diagnoses Date /Time XR CHEST 2 VIEWS Medical Imaging Routine Pneumonia of lower lobe due to infectious organism, unspecified laterality 05/30/2024 5:36 PM EST Scheduled Orders Name Type Priority Associated Diagnoses Orde r Schedule XR CHEST 2 VIEWS Medical Imaging Routine Pneumonia of lower lobe due to infectious organism, unspecified laterality Expected: 05/30/2024, Expires: 06/29/2024 CBC WITH WBC DIFFERENTIAL Lab Routine Pneumonia of lower lobe due to infectious organism, unspecified laterality Expected: 05/30/2024 (Approximate), Expires: 05/30/2025 LYME DISEASE ANTIBODY SCREEN WITH REFLEX TO CONFIRMATION Lab Routine Pneumonia of lower lobe due to infectious organism, unspecified laterality Expected: 05/30/2024 (Approximate), Expires: 05/30/2025 COMPREHENSIVE METABOLIC PANEL Lab Routine Pneumonia of lower lobe due to infectious organism, unspecified laterality Expected: 05/30/2024 (Approximate), Expires: 05/30/2025 Health Maintenance Due Date Last Done Comments COVID-19 Vaccine ( season) 2024 06/13/2021, 10/20/2020, 09/29/2020 Influenza Vaccine (FLU shot) (#1) 2024 04/13/2021, 03/31/2020, 05/07/2018, Additional history exists Depression Screening 12/23/2024 12/24/2023, 05/22/2016 (Discussed) Diabetes Screening 12/30/2026 12/31/2023, 06/17/2013 Lipid Panel 12/30/2028 12/31/2023, 12/12/2012, 12/02/2011 DTap/Tdap Vaccines (3 - Td or Tdap) 12/23/2033 12/24/2023, 10/18/2012, 12/12/1999 Hepatitis B Vaccine Completed 09/26/2008, 03/17/2008, 09/24/2007 HIV Screening Discontinued HPV (Gardasil) Vaccine Aged Out No lo nger eligible based on patient's age to complete this topic Hepatitis C Screening Discontinued MENINGOCOCCAL (MENACTRA/MENVEO) Aged Out No longer eligible based on patient's age to complete this topic Pneumococcal Vaccine: Pediatrics (0 to 5 Years) and At-Risk Patients (6 to 64 Years) Aged Out No longer eligible based on patient's age to complete this topic documented as of this encounter Medical Devices Not on filedocumented as of this encounter Visit Diagnoses Diagnosis Pneumonia of lower lobe due to infectious organism, unspecified laterality- Primary documented in this encounter Care Teams Drum Attendant Relationship Specialty Start Date End Date Panda Banegas MD [address] [place] [address] PCP - General Family Medicine 03/07/19 documented as of this encounter
--- OUTSIDE RECORDS SUMMARY | 2024-05-31 19:26 | External Medical Summary | Summary of Care ---
Author Name Unknown Organization [facility] Address [address] [place] [address] Phone [phone] Care Team Providers Care Customer Marketing Manager Name Role Phone Panda Banegas MD Primary Care Provider +1- [phone] Reason for Visit * Reason Comments Acute Patient is here toda y for a fever, post nasal drip, cough, thick sputum, and fatigue. Patient states he started with symptoms Thursday when he had a 102 fever. Patient states he had upper respiratory symptoms two weeks ago. Patient states he has been OTC cold medication and tessalon pearls twice daily. Encounter Details Date Type Department Care Team (Late st Contact Info) Description 05/26/2024 7:20 AM EST Office Visit [facility] [address] [place] [address] Linh Manzo MD [address] [place] [address] Bronchitis, complicated*; Fever, unspecified fever cause; Sinus drainage Allergies Active Allergy Reactions Criticality Noted Date Comments Bee Venom Hives High 06/29/2015 Levofloxacin High 09/04/2020 Nausea with extreme vomiting, gi tract pain, felt like he could pass out Naproxen 09/04/2020 After 3 days had gi impact documented as of this encounter (statuses as of 05/26/2024) Medications fluticasone (FLONASE) 50 MCG/ACT nasal spray Administer 2 Sprays into each nostril daily. 16 mL 2 08/04/19 19 Active Indomethacin 50 MG Oral CapsuleIndicat ions:Internal derangement of both knees Take 1 Cap by mouth 3 times a day as needed for Pain. with food 40 Cap 1 09/04/19 21 Active Benzonatate 100 MG Oral Capsule Take 1 Capsule by mouth 3 times a day as needed for Cough. 30 Capsule 1 12/24/19 24 Active EPINEPHrine 0.3 MG/0.3ML Injection Solution Auto-injector (Autoinjector) Indications:Be e sting allergy For a severe reaction: Inject in outer thigh following instructions on package and go to the Emergency room. 2 Each 1 12/24/19 24 Active Amoxicillin-Po t Clavulanate 875-125 MG Oral Tablet (Augmentin) Take 1 Tablet by mouth in the morning and 1 Tablet before bedtime. Do all this for 10 days. 20 Tablet 05/26/20 24 024 Active fluticasone (FLONASE) 50 MCG/ACT nasal sprayIndicatio ns:Otalgia of both ears,Dysfuncti on of eustachian tube,Chronic rhinitis 2 SPRAYS IN EACH NOSTRIL DAILY 16 mL 2 12/17/19 17 024 Discontinued documented as of this encounter (statuses as of 05/26/2024) Active Problems Problem Noted Date Diagnosed Date JONI on CPAP 09/11/2015 Chronic rhinitis 07/27/2014 Memory problem 07/27/2014 Sleep disturbance 07/27/2014 Leg edema, right 03/06/2014 Screening for cardiovascular condition 2 Dyslipidemia, goal LDL below 160 11/11/2011 documented as of this encounter (statuses as of 05/26/2024) Resolved Problems Problem Noted Date Diagnosed Date Resolved Date Viral URI with cough 12/03/2014 021 Otalgia of both ears 07/27/2014 021 Dysfunction of eustachian tube 07/27/2014 09/04/2020 Sleep disturbance 07/27/2014 09/04/2020 Local reaction to bee sting 03/06/2014 09/04/2020 Shoulder joint pain 12/02/2011 09/04/19 21 Dyslipidemia, goal LDL below 100 05/22/2016 documented as of this encounter (statuses as of 05/26/2024) Immunizations Name Administration Dates Next Due Anthrax Vaccine 09/26/2008, 8,04/14/2008,2007 Anthrax Vaccine, Adjuvanted (Cyfendus) 09/26/2008,04/28/2008,04/14/2008,2007 COVID-19 mRNA, LNP-s, No Pre serve, 2-Dose Series (MetricStream) 06/13/2021,10/20/2020,09/29/2020 H1N1 2009 Influenza, IM 08/05/2009 HEP [...] Sign Reading Time Taken Comments Blood Pressure 106/76 05/26/2024 7:26 AM EST Pulse 120 05/26/2024 7:26 AM EST Temperature 36.1 C (96.9 F) 05/26/2024 7:26 AM ES T Respiratory Rate 18 05/26/2024 7:26 AM EST Oxygen Saturation 97% 05/26/2024 7:26 AM EST Inhaled Oxygen Concentration - - Weight 96.5 kg (212 lb 12.8 oz) 05/26/2024 7:26 AM EST Height 177.8 cm (5' 10") 05/26/2024 7:26 AM EST Body Mass Index 30.53 05/26/2024 7:26 AM EST documented in this encounter Progress Notes * Linh Manzo MD - 05/26/2024 8:05 AM EST Subjective Edmar Chin is a 43 year old male. Chief Complaint Patient presents with Acute Patient is here today for a fever, post nasal drip, cough, thick sputum, and fatigue. Patient states he started with symptoms Thursday when he had a 102 fever. Patient states he had upper respiratory symptoms two weeks ago. Patient states he has been OTC cold medication and tessalon pearls twice daily. HPI: Here for fever for several days sat and still having fever this morning 101 Took ibuprofen Hydration - encouraged Sinus congestion drainage, cough, some congestion Denies CP, wheezing, Not a smoker PMH: Patient Active Problem List Diagnosis Screening for [...] this for 10 days. 20 Tablet 0 No current facility-administered medications for this visit. Past Medical History: Diagnosis Date Dyslipidemia, goal LDL below 160 11/2011 JONI on CPAP 09/2015 Past Surgical History: Procedure Laterality Date NONE Review of patient's allergies indicates: Allergen Reactions Bee Venom Hives Levaquin [Levofloxacin] Nausea with extreme vomiting, gi tract pain, felt like he could pass out Naproxen After 3 days had gi impact Family History Problem Relation Name Age of Onset Cancer Grandfather (Maternal) 80 prostate Heart Disorder Grandfather (Paternal) 60 fatal DC Diabetes Grandmother (Maternal) Hypertension Father Heart Disorder Grandmother (Paternal) 80 Mental Disorder None Stroke None Family Status Relation Status MGFA (Not Specified) PGFA (Not Specified) MGMA (Not Specified) Fa (Not Specified) PGMA (Not Specified) NONE (Not Specified) NONE (Not Specified) Social History Socioeconomic History Marital status: Spouse name: Not on file Number of children: Not on file Years of education: Not on file Highest education level: Not on file Occupational History Not on file Tobacco Use Smoking status: Never Passive exposure: Past Smokeless tobacco: Never Vaping Use Vaping status: Never Used Substance and Sexual Activity Alcohol use: Yes Comment: 2 times a month Drug use: No Comment: tea 1 cup per night Sexual activity: Yes Comment: may need vasectomy Other Topics Concern Not on file Social History Narrative From katerina Quijano 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 (Adult - for ages 18 years and over): No Does your family have trouble paying for medicine? (Household - for ages 0-17 years): Not on file Food Insecurity: No Food Insecurity (12/24/2023) Food Insecurity Do you need food for this week? (Adult - for ages 18 years and over): No Are you able to get enough food for your family? (Household - for ages 0-17 years): Not on file Does your family need food this week? (Household - for ages 0-17 years): Not on file Do you always have enough food for your family? (Household - for ages 0-17 years): Not on file Transportation Needs: No Transportation Needs (12/24/2023) Transportation Needs Do you have trouble getting a ride to medical visits or work? (Adult - for ages 18 years and over):Never True Does your family have a hard time getting a ride to doctors visits? (Household - for ages 0-17 years): Not on file Has lack of transportation kept you from medical appointments, meetings, work, or from getting things needed for daily living? Check all that apply. (Adult - for ages 18 years and over): Not on file Do you (or your family) have trouble finding or paying for a ride (transportation)? (Household - for ages 0-17 years): Not on file Social Connections: Socially Integrated (12/24/2023) Social Connections How often do you feel lonely or isolated from those around you? (Adult - for ages 18 years and over): Never Housing Stability: Low Risk (12/24/2023) Housing Stability Do you currently live in a senior care or have no steady place to sleep at night? (Adult - for ages 18 years and over): No Do you think you are at risk of becoming homeless? (Adult - for ages 18 years and over): No Does your family worry about paying for your home or becoming homeless? (Household - for ages 0-17 years): Not on file Are you homeless or worried that you might be in the future? (Adult - for ages 18 years and over): Not on file Are you (or your family) homeless or worried that you might be in the future? (Household - for ages0-17 years): Not on file Review of Systems Constitutional: Positive for activity change, chills, fatigue and fever. Negative for appetite change, diaphoresis and unexpected weight change. HENT: Positive for congestion, postnasal drip, rhinorrhea, sinus pressure and tinnitus. Negative for ear pain, facial swelling, hearing loss and sinus pain. Respiratory: Positive for cough and chest tightness. Negative for shortness of breath and wheezing. Cardiovascular: Negative for chest pain, palpitations and leg swelling. Gastrointestinal: Negative for abdominal distention and abdominal pain. Neurological: Positive for headaches. Negative for dizziness and light-headedness. Psychiatric/Behavioral: Positive for sleep disturbance (cough). Negative for agitation and behavioral problems. Objective BP 106/76 (BP Site: Left Arm, BP Position: Sitting, BP Cuff Size: Regular) | Pulse 120 | Temp 36.1 C (96.9 F) (Tympanic) | Resp 18 | Ht 1.778 m (5' 10") | Wt 96.5 kg (212 lb 12.8 oz) | SpO2 97% |BMI 30.53 kg/m | BSA 2.18 m Physical Exam Constitutional: General: He is not in acute distress. Appearance: Normal appearance. He is ill-appearing. He is not toxic-appearing or diaphoretic. HENT: Head: Normocephalic and atraumatic. Ears: Comments: Ear infection Nose: Congestion present. Eyes: Extraocular Movements: Extraocular movements intact. Cardiovascular: Rate and Rhythm: Normal rate and regular rhythm. Pulses: Normal pulses. Heart sounds: Normal heart sounds. No murmur heard. Pulmonary: Effort: Pulmonary effort is normal. No respiratory distress. Breath sounds: No stridor. Rhonchi (mild) present. No wheezing or rales. Chest: Chest wall: No tenderness. Musculoskeletal: Right lower leg: No edema. Left lower leg: No edema. Neurological: General: No focal deficit present. Mental Status: He is alert and oriented to person, place, and time. Psychiatric: Behavior: Behavior normal. ASSESSMENT/PLAN: Bronchitis, complicated (Primary) Fever, unspecified fever cause Sinus drainage Other orders - Amoxicillin-Pot Clavulanate 875-125 MG Oral Tablet (Augmentin); Take 1 Tablet by mouth in the morning and 1 Tablet before bedtime. Do all this for 10 days. Resume zyrtec daily , flonase daily Mucinex Hydration enough Augmentin Linh Manzo MD documented in this encounter Nursing Notes * Anahy Estevez LPN - 05/26/2024 7:28 AM EST The patient has been properly identified by confirmation of name and date of . Chief Complaint Patient presents with Acute Patient is here today for a fever, post nasal drip, cough, thick sputum, and fatigue. Patient states he started with symptoms Thursday when he had a 102 fever. Patient states he had upper respiratory symptoms two weeks ago. Patient states he has been OTC cold medication and tessalon pearls twice daily. documented in this encounter Plan of Treatment Upcoming Encounters Date Type Department Care Team (Late st Contact Info) Description 01/03/2025 1:40 PM EDT Office Visit [facility] [place]Note 2[place] [address] [place] [address] Panda Banegas MD [address] [place] [address] Health Maintenance Due Date Last Done Comments COVID-19 Vaccine ( season) 2024 06/13/2021, 10/20/2020, 09/29/2020 Influenza Vaccine (FLU shot) (#1) 2024 04/13/2021, 03/31/2020, 05/07/2018, Additional history exists Depression Screening 12/23/2024 12/24/2023, 05/22/2016 (Discussed) Diabetes Screening 12/30/2026 12/31/2023, 06/17/2013 Lipid Panel 12/30/2028 12/31/2023, 12/2012, 12/02/2011 DTap/Tdap Vaccines (3 - Td or [...] as of this encounter Visit Diagnoses Diagnosis Bronchitis, complicated- Primary Bronchitis, not specified as acute or chronic Fever, unspecified fever cause Sinus drainage Other diseases of nasal cavity and sinuses documented in this encounter Care Teams Customer Marketing Manager Relationship Specialty Start Date End Date Panda Banegas MD [address] [place] [address] PCP - General Family Medicine 03/07/19 documented as of this encounter
--- OUTSIDE RECORDS SUMMARY | 2024-05-31 19:26 | External Medical Summary | Summary of Care ---
Author Name Unknown Organization [facility] [address] [place] [address] Phone [phone] Care Team Providers Care Padding Gluer Name Role Phone Panda Banegas MD Primary Care Provider +1- [phone] Reason for Referral * Precert (Within 10 days (routine)) - Pending Review Specialty Diagnoses / Procedures Referred By Contac t Referred To Contact Radiology Diagnoses Pain in right knee Procedures MRI KNEE RIGHT WO CONTRAST Rajiv Mcqueen DO [address] [place] [address] Referral ID Status Reason Start Date Expiration Date V isits Requested Visits Authorized [id number] Pending Review 01/21/[phone] * Precert (Within 10 days (routine)) - Pending Review Specialty Diagnoses / Procedures Referred By Contac t Referred To Contact Radiology Diagnoses Pain in left knee Procedures MRI KNEE LEFT WO CONTRAST Rajiv Mcqueen DO [address] [place] [address] Referral ID Status Reason Start Date Expiration Date V isits Requested Visits Authorized [id number] Pending Review 01/21/[phone] Encounter Details Date Type Department Care Team (Late st Contact Info) Description 01/19/2024 Orders Only Radiology, [address] [id number] Requisition, External Radiology [address] [place], [place] [id number] Pain in left knee*; Pain in right knee Allergies Active Allergy Reactions Criticality Noted Date Comments Bee Venom Hives High 06/29/2015 Levofloxacin High 09/04/2020 Nausea with extreme vomiting, gi tract pain, felt like he could pass out Naproxen 09/04/2020 After 3 days had gi impact documented as of this encounter (statuses as of 01/19/2024) Medications Medication Sig Dispensed Refills Start Date End Date Status fluticasone (FLONASE) 50 MCG/ACT nasal sprayIndications:O talgia of both ears,Dysfunction of eustachian tube,Chronic rhinitis 2 SPRAYS IN EACH NOSTRIL DAILY 16 mL 2 12/16/2016 Active fluticasone (FLONASE) 50 MCG/ACT nasal spray Administer 2 Sprays into each nostril daily. 16 mL 2 08/04/2018 Active Indomethacin 50 MG Oral CapsuleIndications :Internal derangement of both knees Take 1 Cap by mouth 3 times a day as needed for Pain. with food 40 Cap 1 09/04/2020 Active Benzonatate 100 MG Oral Capsule Take 1 Capsule by mouth 3 times a day as needed for Cough. 30 Capsule 1 12/24/2023 Active EPINEPHrine 0.3 MG/0.3ML Injection Solution Auto-injector (Autoinjector)Shannan cations:Bee sting allergy For a severe reaction: Inject in outer thigh following instructions on package and go to the Emergency room. 2 Each 1 12/24/2023 Active documented as of this encounter (statuses as of 01/19/2024) Active Problems Problem Noted Date Diagnosed Date JONI on CPAP 09/11/2015 Chronic rhinitis 07/27/2014 Memory problem 07/27/2014 Sleep disturbance 07/27/2014 Leg edema, right 03/06/2014 Screening for cardiovascular condition 2 Dyslipidemia, goal LDL below 160 11/11/2011 documented as of this encounter (statuses as of 01/19/2024) Resolved Problems Problem Noted Date Diagnosed Date Resolved Date Viral URI with cough 12/03/2014 021 Otalgia of both ears 07/27/2014 021 Dysfunction of eustachian tube 07/27/2014 09/04/2020 Sleep disturbance 07/27/2014 09/04/2020 Local reaction to bee sting 03/06/2014 09/04/2020 Shoulder joint pain 12/02/2011 09/04/19 21 Dyslipidemia, goal LDL below 100 05/22/2016 documented as of this encounter (statuses as of 01/19/2024) Immunizations Name Administration Dates Next Due Anthrax Vaccine 09/26/2008, 8,04/14/2008,2007 Anthrax Vaccine, Adjuvanted (Cyfendus) 09/26/2008,04/28/2008,04/14/2008,2007 COVID-19 mRNA, LNP-s, No Pre serve, 2-Dose Series (Meal Mantra) 06/13/2021,10/20/2020,09/29/2020 H1N1 2009 Influenza, IM 08/05/2009 HEP A - Hepatitis A (Adult > 18 yrs) 03/17/2008,09/24/2007 Hepatitis B, 20+ yrs 09/26/2008,03/17/2008,09/23 IPV - Polio Virus Vaccine (Inact) 12/12/1999,05/1999 MMR - Measles/Mumps/Rubella Vaccine 12/12/1999 OPV - Polio Virus Vaccine (Oral) 12/21/1998 PPD 03/22/2009,03/15/2008 Seasonal Influenza Intranasal 05/13/2014, 010,04/14/2008 Seasonal Influenza, PF, 6 M & above, IM , (FluLaval or Fluzone) 04/13/2021,03/31/2020,05/07/2018 Seasonal Influenza, Quadriva lent, No Preserve, IM 03/13/2015 Seasonal Influenza, Split, I IV3, No Preserve, Inj 03/29/2011,05/18/2010 Seasonal Influenza, Split, I IV3, With Preserve, Inj 05/04/2016,04/15/2013 TD - Tetanus/Diptheria (ADULT) 12/12/1999 TDAP (age [...] do you feel lonely or isolated from ose around you? Never 12/24/2023 Financial Resource [...] Assigned at Male 12/24/2023 10:11 AM EDT Gender Identity Male 12/24/2023 10:11 AM EDT Sexual Orientation Straight 12/24/2023 10 :11 AM EDT Job Start Date Occupation Industry Not on file Not on file Not on file documented as of this encounter Plan of Treatment Upcoming Encounters Date Type Department Care Team (Late st Contact Info) Description 01/21/2024 2:45 PM EDT Imaging Radiology [facility] [address] [facility] [address] [facility] [place] [address] 03/02/2024 8:30 AM EDT Office Visit Otolaryngology [facility] [address] [facility] [place] [address] [place] DO [address] [facility] [place] [address] 01/03/2025 1:40 PM EDT Office Visit [facility] [address] [place] [address] Panda Banegas MD [address] [place], [place] [id number] Scheduled Orders Name Type Priority Associated Diagnoses Orde r Schedule MRI KNEE LEFT WO CONTRAST Medical Imaging Routine Pain in left knee Expected: 01/21/2024, Expires: 07/17/2024 MRI KNEE RIGHT WO CONTRAST Medical Imaging Routine Pain in right knee Expected: 01/21/2024, Expires: 07/17/2024 Health Maintenance Due Date Last Done Comments COVID-19 Vaccine ( season) 2023 06/13/2021, 10/20/2020, 09/29/2020 Influenza Vaccine (FLU shot) (#1) 2024 04/13/2021, 03/31/2020, 05/07/2018, Additional history exists Depression Screening 12/23/2024 12/24/2023, 05/22/2016 (Discussed) Diabetes Screening 12/30/2026 12/31/2023, 06/17/2013 Lipid Panel 12/30/2028 12/31/2023, 12/2012, 12/02/2011 DTaP,Tdap,and Td Vaccines (3 - Td or Tdap) 12/23/2033 [...] as of this encounter Visit Diagnoses Diagnosis Pain in left knee- Primary Pain in joint, lower leg Pain in right knee Pain in joint, lower leg documented in this encounter Care Teams Padding Gluer Relationship Specialty Start Date End Date Panda Banegas MD [address] [place] [address] PCP - General Family Medicine 03/07/19 documented as of this encounter
--- OUTSIDE RECORDS SUMMARY | 2024-05-31 19:26 | External Medical Summary | Summary of Care ---
Author Name Unknown Organization [facility] Address [address] [place] [address] Phone [phone] Care Team Providers Care Clam Picker Name Role Phone Panda Banegas MD Primary Care Provider +1- [phone] Reason for Visit * Reason Onset Date Comments MyCode Nonconsent - Not interested at this time 12/31/2023 Encounter Details Date Type Department Care Team (Late st Contact Info) Description 12/31/2023 Orders Only [facility] [address] [place] [address] Shebly Bullard CHRA MyCode Nonconsent Documentation Allergies Active Allergy Reactions Criticality Noted Date Comments Bee Venom Hives High 06/29/2015 Levofloxacin High 09/04/2020 Nausea with extreme vomiting, gi tract pain, felt like he could pass out Naproxen 09/04/2020 After 3 days had gi impact documented as of this encounter (statuses as of 12/31/2023) Medications Medication Sig Dispensed Refills Start Date [...] as of this encounter (statuses as of 12/31/2023) Active Problems Problem Noted Date Diagnosed Date JONI on CPAP 09/11/2015 Chronic rhinitis 07/27/2014 Memory problem 07/27/2014 Sleep disturbance 07/27/2014 Leg edema, right 03/06/2014 Screening for cardiovascular condition 2 Dyslipidemia, goal LDL below 160 11/11/2011 documented as of this encounter (statuses as of 12/31/2023) Resolved Problems Problem Noted Date Diagnosed Date Resolved Date Viral URI with cough 12/03/2014 021 Otalgia of both ears 07/27/2014 021 Dysfunction of eustachian tube 07/27/2014 09/04/2020 Sleep disturbance 07/27/2014 09/04/2020 Local reaction to bee sting 03/06/2014 09/04/2020 Shoulder joint pain 12/02/2011 09/04/19 21 Dyslipidemia, goal LDL below 100 05/22/2016 documented as of this encounter (statuses as of 12/31/2023) Immunizations Name Administration Dates Next Due Anthrax Vaccine 09/26/2008, 8,04/14/2008,2007 Anthrax Vaccine, Adjuvanted (Cyfendus) 09/26/2008,04/28/2008,04/14/2008,2007 COVID-19 mRNA, LNP-s, No Pre serve, 2-Dose Series (Faveous) 06/13/2021,10/20/2020,09/29/2020 H1N1 2009 Influenza, IM 08/05/2009 HEP [...] on file documented as of this encounter Progress Notes * Shelby Bullard CHRA - 12/31/2023 10:34 AM EDT MyCode Nonconsent Documentation Edmar Chin was approached in the clinic regarding participation in the MyCode Project and did not consent. documented in this encounter Plan of Treatment Upcoming Encounters Date Type Department Care Team (Late st Contact Info) Description 03/02/2024 8:30 AM EDT Office Visit Otolaryngology [facility] [address] [place] [address] [place], [address] [place] [address] 01/03/2025 1:40 PM EDT Office Visit [facility] [address] [facility] [id number] Panda Banegas MD [address] [place] [address] Health Maintenance Due Date Last Done Comments Diabetes Screening 06/17/2016 06/17/2013 Lipid Panel 06/17/2018 06/17/2013, 12/02/2011 COVID-19 Vaccine ( season) 2023 06/13/2021, 10/20/2020, 09/29/2020 Influenza Vaccine (FLU shot) (Season Ended) 2024 04/13/2021, 03/31/2020, 05/07/2018, Additional history exists Depression Screening 12/23/2024 12/24/2023, 05/22/2016 (Discussed) DTaP,Tdap,and Td Vaccines (3 - Td or Tdap) 12/23/2033 12/24/2023, 10/18/2012, 12/12/1999 Hepatitis B Completed 09/26/2008, 11/2007, 09/24/2007 GARDASIL-HPV IMMUNIZATION SERIES Aged Out No longer eligible based on patient's age to complete this topic HIV Screening Discontinued Hepatitis C Screening Discontinued MENINGOCOCCAL (MENACTRA/MENVEO) Aged Out No longer eligible based on patient's age to complete this topic Pneumococcal Vaccine: Pediatrics (0 to 5 Years) and At-Risk Patients (6 to 64 Years) Aged Out No longer eligible based on patient's age to complete this topic documented as of this encounter Medical Devices Not on filedocumented as of this encounter Care Teams Clam Picker Relationship Specialty Start Date End Date [facility]as [facility] [address] [facility] [place] [address] PCP - General Family Medicine 03/07/19 documented as of this encounter
--- OUTSIDE RECORDS SUMMARY | 2024-05-31 19:26 | External Medical Summary | Summary of Care ---
Author Name Unknown Organization [facility] Address [address] [facility] [address] Phone [phone] Care Team Providers Care Business Systems Manager Name Role Phone Panda Banegas MD Primary Care Provider +1- [phone] Reason for Visit * Reason Comments Outpatient Testing Encounter Details Date Type Department Care Team (Late st Contact Info) Description 05/31/2024 8:10 AM EST Laboratory Laboratory, [place] [address] [place] [id number] [place] [address] [place] [address] Pneumonia of lower lobe due to infectious organism, unspecified laterality Allergies Active Allergy Reactions Criticality Noted Date Comments Bee Venom Hives High 06/29/2015 Levofloxacin High 09/04/2020 Nausea with extreme vomiting, gi tract pain, felt like he could pass out Naproxen 09/04/2020 After 3 days had gi impact documented as of this encounter (statuses as of 05/31/2024) Medications fluticasone (FLONASE) 50 MCG/ACT nasal spray [...] as of this encounter (statuses as of 05/31/2024) Active Problems Problem Noted Date Diagnosed Date JONI on CPAP 09/11/2015 Chronic rhinitis 07/27/2014 Memory problem 07/27/2014 Sleep disturbance 07/27/2014 Leg edema, right 03/06/2014 Screening for cardiovascular condition 2 Dyslipidemia, goal LDL below 160 11/11/2011 documented as of this encounter (statuses as of 05/31/2024) Resolved Problems Problem Noted Date Diagnosed Date Resolved Date Viral URI with cough 12/03/2014 021 Otalgia of both ears 07/27/2014 021 Dysfunction of eustachian tube 07/27/2014 09/04/2020 Sleep disturbance 07/27/2014 09/04/2020 Local reaction to bee sting 03/06/2014 09/04/2020 Shoulder joint pain 12/02/2011 09/04/19 21 Dyslipidemia, goal LDL below 100 05/22/2016 documented as of this encounter (statuses as of 05/31/2024) Immunizations Name Administration Dates Next Due Anthrax Vaccine 09/26/2008, 8,04/14/2008,2007 Anthrax Vaccine, Adjuvanted (Cyfendus) 09/26/2008,04/28/2008,04/14/2008,2007 COVID-19 mRNA, LNP-s, No Pre serve, 2-Dose Series ([employer]) 06/13/2021,10/20/2020,09/29/2020 H1N1 2009 Influenza, IM 08/05/2009 HEP [...] AM EDT documented as of this encounter Plan of Treatment Upcoming Encounters Date Type Department Care Team ([facility] st Contact Info) Description 01/03/2025 1:40 PM EDT Office Visit [address] [place] [address] Panda Banegas MD [address] [facility] [place] [address] Pending Results Name Type Priority Associated Diagnoses Date /Time CBC WITH WBC DIFFERENTIAL Lab Routine Pneumonia of lower lobe due to infectious organism, unspecified laterality 05/31/2024 8:21 AM EST LYME DISEASE ANTIBODY SCREEN WITH REFLEX TO CONFIRMATION Lab Routine Pneumonia of lower lobe due to infectious organism, unspecified laterality 05/31/2024 8:21 AM EST COMPREHENSIVE METABOLIC PANEL Lab Routine Pneumonia of lower lobe due to infectious organism, unspecified laterality 05/31/2024 8:21 AM EST CBC Lab Routine Pneumonia of lower lobe due to infectious organism, unspecified laterality 05/31/2024 8:21 AM EST DIFFERENTIAL, AUTOMATED Lab Routine Pneumonia of lower lobe due to infectious organism, unspecified laterality 05/31/2024 8:21 AM EST LYME DISEASE ANTIBODY SCREEN Lab Routine Pneumonia of lower lobe due to infectious organism, unspecified laterality 05/31/2024 8:21 AM EST Health Maintenance Due Date Last Done Comments [...] lobe due to infectious organism, unspecified laterality documented in this encounter Care Teams Business Systems Manager Relationship Specialty Start Date End Date Panda Banegas MD [address] [place] [address] PCP - General Family Medicine 03/07/19 documented as of this encounter
--- OUTSIDE RECORDS SUMMARY | 2024-05-31 19:26 | External Medical Summary | Summary of Care ---
Author Name Unknown Organization [facility] Address [address] [place] [address] Phone [phone] Care Team Providers Care Corporate Relations Director Name Role Phone Panda Banegas MD Primary Care Provider +1- [phone] Reason for Visit * Reason Onset Date Comments Films 02/12/2024 Encounter Details Date Type Department Care Team (Late st Contact Info) Description 02/12/2024 Telephone Radiology Film File [address] [place] [address] Support, Imaging Radiology [address] [place], [place] [id number] Films Allergies Active Allergy Reactions Criticality Noted Date Comments Bee Venom Hives High 06/29/2015 Levofloxacin High 09/04/2020 Nausea with extreme vomiting, gi tract pain, felt like he could pass out Naproxen 09/04/2020 After 3 days had gi impact documented as of this encounter (statuses as of 02/12/2024) Medications Medication Sig Dispensed Refills Start Date [...] as of this encounter (statuses as of 02/12/2024) Active Problems Problem Noted Date Diagnosed Date JONI on CPAP 09/11/2015 Chronic rhinitis 07/27/2014 Memory problem 07/27/2014 Sleep disturbance 07/27/2014 Leg edema, right 03/06/2014 Screening for cardiovascular condition 2 Dyslipidemia, goal LDL below 160 11/11/2011 documented as of this encounter (statuses as of 02/12/2024) Resolved Problems Problem Noted Date Diagnosed Date Resolved Date Viral URI with cough 12/03/2014 021 Otalgia of both ears 07/27/2014 021 Dysfunction of eustachian tube 07/27/2014 09/04/2020 Sleep disturbance 07/27/2014 09/04/2020 Local reaction to bee sting 03/06/2014 09/04/2020 Shoulder joint pain 12/02/2011 09/04/19 21 Dyslipidemia, goal LDL below 100 05/22/2016 documented as of this encounter (statuses as of 02/12/2024) Immunizations Name Administration Dates Next Due Anthrax Vaccine 09/26/2008, 8,04/14/2008,2007 Anthrax Vaccine, Adjuvanted (Cyfendus) 09/26/2008,04/28/2008,04/14/2008,2007 COVID-19 mRNA, LNP-s, No Pre serve, 2-Dose Series ([employer]) 06/13/2021,10/20/2020,09/29/2020 H1N1 2009 Influenza, IM 08/05/2009 HEP [...] on file documented as of this encounter Miscellaneous Notes * Telephone Encounter - Char Gilmore OSA - 02/12/2024 2:03 PM EDT [facility] requesting 01-21-24 images be pushed to their system. [place] Authorization to Release on file. Images pushed to [facility] external connection through [employer] Report(s) faxed to [phone]. Successful fax confirmation received. documented in this encounter Plan of Treatment Upcoming Encounters Date Type Department Care Team (Late st Contact Info) Description 04/20/2024 10:00 AM EDT Office Visit Otolaryngology/Head & Neck/Facial Plastic Surgery [address] [place] [address] Melony Up PA-C [address] [place] [address] 01/03/2025 1:40 PM EDT Office Visit [facility] [address] [place] [phone] Panda Banegas MD [address] [place], [place] [phone] Health Maintenance Due Date Last Done Comments [...] filedocumented as of this encounter Care Teams Corporate Relations Director Relationship Specialty Start Date End Date Panda Banegas MD [address] [place] [facility] [place] [address] PCP - General Family Medicine 03/07/19 documented as of this encounter
--- OUTSIDE RECORDS SUMMARY | 2024-05-31 19:26 | External Medical Summary | Summary of Care ---
Author Name Unknown Organization [facility] Address [address] [facility] [place] [address] Phone [phone] Care Team Providers Care Inside Sales Lead Name Role Phone Panda Bnaegas MD Primary Care Provider +1- [phone] Reason for Visit * Reason Onset Date Comments Advice 05/30/2024 Encounter Details Date Type Department Care Team (Late st Contact Info) Description 05/30/2024 Telephone Family Medicine [address] [address] Guera Culver MD [address] [place] [address] [place] [id number] Advice Allergies Active Allergy Reactions Criticality Noted Date [...] MG Oral Tablet Active Cholecalciferol 50 MCG (1999 [place]) Oral Tablet Acti ve Vitamin C [...] mRNA, LNP-s, No Pre serve, 2-Dose Series ([employer]) 06/13/2021,10/20/2020,09/29/2020 H1N1 2009 Influenza, IM 08/05/2009 HEP [...] AM EDT documented as of this encounter Miscellaneous Notes * Telephone Encounter - Guera Culver MD - 05/30/2024 7:19 PM EST Received a tiger text Stat CXR result: R perihilar pneumonia. Recommended follow up to resolution Pt was started on doxy in the clinic today Forwarded the msg to the ordering physician documented in this encounter Plan of Treatment Upcoming Encounters Date Type Department Care Team (Late st Contact Info) Description 01/03/2025 1:40 PM EDT Office Visit [address] [address] Panda Banegas MD [address], [place] [phone] Health Maintenance Due Date Last Done Comments [...] filedocumented as of this encounter Care Teams Inside Sales Lead Relationship Specialty Start Date End Date Panda Banegas MD [address] [place] [address] PCP - General Family Medicine 03/07/19 documented as of this encounter
--- OUTSIDE RECORDS SUMMARY | 2024-05-31 19:26 | External Medical Summary | Summary of Care ---
Author Name Unknown Organization [facility] Address [address] [place] [address] Phone [phone] Care Team Providers Care Solid Plasterer Name Role Phone Panda Banegas MD Primary Care Provider +1- [phone] Reason for Visit * Reason Onset Date Comments Appointment 01/19/2024 Scheduled with Remy del castillo for 04/20/24 at 10:00 AM. Encounter Details Date Type Department Care Team (Late st Contact Info) Description [facility]20[facility] [address] [place] [facility] [place] [address] Panda Banegas MD [address] [place] [address] Appointment (Scheduled with Cera for ... Allergies Active Allergy Reactions Criticality Noted Date Comments Bee Venom Hives High 06/29/2015 Levofloxacin High 09/04/2020 Nausea with extreme vomiting, gi tract pain, felt like he could pass out Naproxen 09/04/2020 After 3 days had gi impact documented as of this encounter (statuses as of 01/20/2024) Medications Medication Sig Dispensed Refills Start Date [...] as of this encounter (statuses as of 01/20/2024) Active Problems Problem Noted Date Diagnosed Date JONI on CPAP 09/11/2015 Chronic rhinitis 07/27/2014 Memory problem 07/27/2014 Sleep disturbance 07/27/2014 Leg edema, right 03/06/2014 Screening for cardiovascular condition 2 Dyslipidemia, goal LDL below 160 11/11/2011 documented as of this encounter (statuses as of 01/20/2024) Resolved Problems Problem Noted Date Diagnosed Date Resolved Date Viral URI with cough 12/03/2014 021 Otalgia of both ears 07/27/2014 021 Dysfunction of eustachian tube 07/27/2014 09/04/2020 Sleep disturbance 07/27/2014 09/04/2020 Local reaction to bee sting 03/06/2014 09/04/2020 Shoulder joint pain 12/02/2011 09/04/19 21 Dyslipidemia, goal LDL below 100 05/22/2016 documented as of this encounter (statuses as of 01/20/2024) Immunizations Name Administration Dates Next Due Anthrax Vaccine 09/26/2008, 8,04/14/2008,2007 Anthrax Vaccine, Adjuvanted ([employer]us) 09/26/2008,04/28/2008,04/14/2008,2007 COVID-19 mRNA, LNP-s, No Pre serve, 2-Dose Series ([employer]) 06/13/2021,10/20/2020,09/29/2020 H1N1 2009 Influenza, IM 08/05/2009 HEP [...] 12/24/2023 Does the household have a re lar source of income? (Household - for ages [...] encounter Miscellaneous Notes * Telephone Encounter - Alyse An OSA - 01/20/2024 3:56 PM EDT [facility]00 AM. * Telephone Encounter - Tammie Boudreaux OSA - 01/19/2024 2:[address] Mesa - "Please let patient know I dont see adult JONI. PCP can refer to [facility] for this" I did call patient and let him know that he would need to be seen at [facility], he would like to be seen locally but our office does not treat adult JONI. Tammie Boudreaux, JONI documented in this encounter Plan of Treatment Upcoming Encounters Date Type Department Care Team (Late st Contact Info) Description 01/21/2024 2:45 PM EDT Imaging Radiology [facility], [address] [place] [address] 04/20/2024 10:00 AM EDT Office Visit Otolaryngology/Head & Neck/Facial Plastic Surgery [address] [place] [address] Melony Up PA-C [address] [place] [address] 01/03/2025 1:40 PM EDT Office Visit [facility] [address] [place] [address] Panda Banegas MD [address] [place] [address] Health Maintenance Due Date Last Done Comments COVID-19 Vaccine ( season) 2023 06/13/2021, 10/20/2020, 09/29/2020 Influenza Vaccine (FLU shot) (#1) 2024 04/13/2021, 03/31/2020, 05/07/2018, Additional history exists Depression Screening 12/23/2024 12/24/2023, 05/22/2016 (Discussed) Diabetes Screening 12/30/2026 12/31/2023, 06/17/2013 Lipid Panel 12/30/2028 12/31/2023, 12/12/2012, 12/02/2011 DTaP,Tdap,and Td Vaccines (3 - Td [...] filedocumented as of this encounter Care Teams Solid Plasterer Relationship Specialty Start Date End Date Panda Banegas MD [address] [place] [address] PCP - General Family Medicine 03/07/19 documented as of this encounter
--- OUTSIDE RECORDS SUMMARY | 2024-05-31 19:27 | External Medical Summary | Summary of Care ---
Author Name Unknown Organization [facility] Address [address] [place] [address] Phone [phone] Care Team Providers Care Investment Representative Name Role Phone Panda Banegas MD Primary Care Provider +1- [phone] Reason for Visit * Reason Onset Date Comments Fax 12/25/2023 Encounter Details Date Type Department Care Team (Late st Contact Info) Description [facility]/2023 [facility] [address] [place] [facility] [place] [address] Panda Banegas MD [address] [place] [address] Fax Allergies Active Allergy Reactions Criticality Noted Date Comments Bee Venom Hives High 06/29/2015 Levofloxacin High 09/04/2020 Nausea with extreme vomiting, gi tract pain, felt like he could pass out Naproxen 09/04/2020 After 3 days had gi impact documented as of this encounter (statuses as of 12/25/2023) Medications Medication Sig Dispensed Refills Start Date [...] as of this encounter (statuses as of 12/25/2023) Active Problems Problem Noted Date Diagnosed Date JONI on CPAP 09/11/2015 Chronic rhinitis 07/27/2014 Memory problem 07/27/2014 Sleep disturbance 07/27/2014 Leg edema, right 03/06/2014 Screening for cardiovascular condition 2 Dyslipidemia, goal LDL below 160 11/11/2011 documented as of this encounter (statuses as of 12/25/2023) Resolved Problems Problem Noted Date Diagnosed Date Resolved Date Viral URI with cough 12/03/2014 021 Otalgia of both ears 07/27/2014 021 Dysfunction of eustachian tube 07/27/2014 09/04/2020 Sleep disturbance 07/27/2014 09/04/2020 Local reaction to bee sting 03/06/2014 09/04/2020 Shoulder joint pain 12/02/2011 09/04/19 21 Dyslipidemia, goal LDL below 100 05/22/2016 documented as of this encounter (statuses as of 12/25/2023) Immunizations Name Administration Dates Next Due Anthrax Vaccine 09/26/2008, 8,04/14/2008,2007 Anthrax Vaccine, Adjuvanted (Cyf[employer]us) 09/26/2008,04/28/2008,04/14/2008,2007 COVID-19 mRNA, LNP-s, No Pre serve, 2-Dose Series ([employer]) 06/13/2021,10/20/2020,09/29/2020 H1N1 2009 Influenza, IM 08/05/2009 HEP [...] have money to get more. Patient declined Sex and Gender Information Value Date Recorded Sex Assigned at Male 12/24/2023 10:11 AM EDT Gender Identity Male 12/24/2023 10:11 AM EDT Sexual Orientation Straight 12/24/2023 10 :11 AM EDT Job Start Date Occupation Industry Not on file Not on file Not on file documented as of this encounter Miscellaneous Notes * Telephone Encounter - Hallie Licona OSA - 12/25/2023 3:12 PM EDT Caller requesting the following information to be faxed: Name/Company of caller: [employer] Information requested to be faxed: ortho referral Fax number: [phone] Attention to Name/Company: [facility] [employer] Any additional information?: right faxed documented in this encounter Plan of Treatment Upcoming Encounters Date Type Department Care Team (Late st Contact Info) Description 03/02/2024 8:30 AM EDT Office Visit Otolaryngology [facility] [address] [place] [address] Gilbert Mesa DO [address] [place] [address] 01/03/2025 1:40 PM EDT Office Visit [facility] [address] [place] [address] Panda Banegas MD [address] [place] [address] Health Maintenance Due Date Last [...] filedocumented as of this encounter Care Teams Investment Representative Relationship Specialty Start Date End Date Panda Banegas MD [address] [place] [address] PCP - General Family Medicine 03/07/19 documented as of this encounter
--- OUTSIDE RECORDS SUMMARY | 2024-05-31 19:27 | External Medical Summary ---
Author Name Unknown Address Unknown Organization K01:LABORATORY C - [address] [facility] [address] Laboratory Report Ordering Provider Test Date Status EMMA LINDO 12/31/2023 10:21:52 Final Observation Date Value Abnormality Reference (Units ) Status Triglyceride 12/31/2023 10:21:52 267 Above high normal <=174 (mg/dL) Final Triglyceride Reference Range s (mg/dL):
<150 Acceptable
150-174 Borderline high
175-499 High
>=500 Very high Cholesterol 12/31/2023 10:21:52 246 Above high normal <200 (mg/dL) Final Total Cholesterol Reference Ranges (mg/dL):
<200 Desirable
200-239 Borderline high
>=240 High HDL 12/31/2023 10:21:52 45 >39 (mg/dL ) Final HDL Cholesterol Reference Ra nges (mg/dL):
>=60 High (Desirable)
<50 Low (Undesirable) For Females
<40 Low (Undesirable) For Males NON-HDL CHOLESTEROL 12/31/2023 10:21:52 201 Above high normal <=159 (mg/dL) Final Non-HDL Cholesterol Referenc e Range (mg/dL):
<100 Target level for high risk ASCVD patient
<130 Optimal for general population
130-159 Near optimal for general population
160-189 Borderline High
190-219 High
>=220 Very High LDL, (calculated) 12/31/2023 10:21:52 148 Above high n ormal <=129 (mg/dL) Final LDL Cholesterol Reference Ra nges (mg/dL):
<70 Target level for high risk ASCVD patient
<100 Optimal for general population
100-129 Near optimal for general population
130-159 Borderline high
160-189 High
>=190 Very high Performing Location LABORATORY [facility] - [address] [facility] [id number]
--- OUTSIDE RECORDS SUMMARY | 2024-05-31 19:27 | External Medical Summary | Summary of Care ---
Author Name Unknown Organization [facility] Address [address] [facility] [place] [address] Phone [phone] Care Team Providers Care Master Mechanic Name Role Phone Panda Banegas MD Primary Care Provider +1- [phone] Encounter Details Date Type Department Care Team (Late st Contact Info) Description 12/28/2023 Orders Only PATIENT PORTAL DO NOT DELETE THIS DEPT USED BY [place] [id number] Allergies Active Allergy Reactions Criticality Noted Date Comments Bee Venom Hives High 06/29/2015 Levofloxacin High 09/04/2020 Nausea with extreme vomiting, gi tract pain, felt like he could pass out Naproxen 09/04/2020 After 3 days had gi impact documented as of this encounter (statuses as of 12/28/2023) Medications Medication Sig Dispensed Refills Start Date [...] as of this encounter (statuses as of 12/28/2023) Active Problems Problem Noted Date Diagnosed Date JONI on CPAP 09/11/2015 Chronic rhinitis 07/27/2014 Memory problem 07/27/2014 Sleep disturbance 07/27/2014 Leg edema, right 03/06/2014 Screening for cardiovascular condition 2 Dyslipidemia, goal LDL below 160 11/11/2011 documented as of this encounter (statuses as of 12/28/2023) Resolved Problems Problem Noted Date Diagnosed Date Resolved Date Viral URI with cough 12/03/2014 021 Otalgia of both ears 07/27/2014 021 Dysfunction of eustachian tube 07/27/2014 09/04/2020 Sleep disturbance 07/27/2014 09/04/2020 Local reaction to bee sting 03/06/2014 09/04/2020 Shoulder joint pain 12/02/2011 09/04/19 21 Dyslipidemia, goal LDL below 100 05/22/2016 documented as of this encounter (statuses as of 12/28/2023) Immunizations Name Administration Dates Next Due Anthrax Vaccine 09/26/2008, 8,04/14/2008,2007 Anthrax Vaccine, Adjuvanted ([employer]) 09/26/2008,04/28/2008,04/14/2008,2007 COVID-19 mRNA, LNP-s, No Pre serve, 2-Dose Series ([employer]) 06/13/2021,10/20/2020,09/29/2020 H1N1 2009 Influenza, IM 08/05/2009 HEP [...] AM EDT Office Visit Otolaryngology [facility] [address] [place] [address] Moshe Gilbertruth Powell DO [address] [place] [address] 01/03/2025 1:40 PM EDT Office Visit [facility] [address] [facility] [address] Panda Banegas MD [address] [place] [address] Health Maintenance Due Date Last Done Comments [...] filedocumented as of this encounter Care Teams Master Mechanic Relationship Specialty Start Date End Date Panda Banegas MD [address] [facility] [address] PCP - General Family Medicine 03/07/19 documented as of this encounter
--- OUTSIDE RECORDS SUMMARY | 2024-05-31 19:27 | External Medical Summary | Summary of Care ---
Author Name Unknown Organization [facility] Address [address] [place] [address] Phone [phone] Care Team Providers Care Human Resources Coordinator Name Role Phone Panda Banegas MD Primary Care Provider +1- [phone] Reason for Visit * Reason Onset Date Comments Advice 12/25/2023 Encounter Details Date Type Department Care Team (Late st Contact Info) Description [facility] [address] [place] [facility] [place] [address] Panda Banegas MD [address] [place] [address] Advice Allergies Active Allergy Reactions Criticality Noted [...] mRNA, LNP-s, No Pre serve, 2-Dose Series ([employer]) 06/13/2021,10/20/2020,09/29/2020 H1N1 2009 Influenza, IM 08/05/2009 HEP [...] times a month PHQ-2 Answer Date Recorded PHQ-2 Score 0 08/04/2018 Hunger Vital Sign Answer Date Recorded Within the past 12 months, y ou worried that your food would run out before you got the money to buy more. Never true 09/02/19 21 Within the past 12 months, t he food you bought just didn't last and you didn't have money to get more. Never true 09/02/2020 Sex and Gender Information Value Date Recorded Sex Assigned at Male 12/24/2023 10:11 AM EDT Gender Identity Male 12/24/2023 10:11 AM EDT Sexual Orientation Straight 12/24/2023 10 :11 AM EDT Job Start Date Occupation Industry Not on file Not on file Not on file documented as of this encounter Miscellaneous Notes * Telephone Encounter - Perla José OSA - 12/25/2023 1:56 PM EDT LMOM letting patient know that they need to call the number on the back of their insurance card to get a list of in network providers. They will then need to call us to let us know where they want togo so that we may send the necessary info to the place they choose. 12/25/2023 * Telephone Encounter - Carmen Mesa LPN - 12/25/2023 11:53 AM EDT Please contact pt to assist with scheduling ortho appointment with participating provider. Thanks. * Telephone Encounter - Zaida Mar OSA - 12/25/2023 11:03 AM EDT Mary from [facility] is calling in to let PCP office know that they do not accept the patients insurance. documented in this encounter Plan of Treatment Upcoming Encounters Date Type Department Care Team (Late st Contact Info) Description 03/02/2024 8:30 AM EDT Office Visit Otolaryngology [facility] [address] [place] [address] Gilbert Mesa DO [address] [place] [address] 01/03/2025 1:40 PM EDT Office Visit [facility] [address] [facility] [place] [address] Panda [facility]egas MD [address] [facility] [address] Health Maintenance Due Date Last Done Comments [...] filedocumented as of this encounter Care Teams Human Resources Coordinator Relationship Specialty Start Date End Date Panda Banegas MD [address] [place] [address] PCP - General Family Medicine 03/07/19 documented as of this encounter
--- OUTSIDE RECORDS SUMMARY | 2024-05-31 19:27 | External Medical Summary | Summary of Care ---
Author Name Unknown Organization [facility] Address [address] [place] [address] Phone [phone] Care Team Providers Care Table Worker Packager Name Role Phone Panda Banegas MD Primary Care Provider [phone]- [phone] Reason for Visit * Reason Comments Outpatient Testing Encounter Details Date Type Department Care Team (Late st Contact Info) Description 12/31/2023 10:30 AM EDT Laboratory Laboratory, [facility] [address] [place] [address] [facility] [address] [place] [address] Screening for cardiovascular condition; Routine medical exam Allergies Active Allergy Reactions Criticality Noted Date [...] mRNA, LNP-s, No Pre serve, 2-Dose Series ([employer]) 06/13/2021,10/20/2020,09/29/2020 H1N1 2009 Influenza, IM 08/05/2009 HEP [...] No 12/24/2023 Does the household have a [facility] source of income? (Household - for ages [...] 03/02/2024 8:30 AM EDT Office Visit Otolaryngology [facility] [address] [address] [place] DO [address] [address] 01/03/2025 1:40 PM EDT Office Visit [address] [address] Panda Banegas MD [address] [place] [address] Pending Results Name Type Priority Associated Diagnoses Date /Time LIPID PANEL WITH DIRECT LDL IF TG IS HIGH Lab Routine Screening for cardiovascular condition 12/31/2023 10:21 AM EDT BASIC METABOLIC PANEL Lab Routine Routine medical exam 12/31/2023 10:21 AM EDT Health Maintenance Due Date Last Done Comments [...] as of this encounter Visit Diagnoses Diagnosis Screening for cardiovascular condition Screening for other and unspecified cardiovascular conditions Routine medical exam Routine general medical examination at a health care facility documented in this encounter Care Teams Table Worker Packager Relationship Specialty Start Date End Date Panda Banegas MD [address] [place] [address] PCP - General Family Medicine 03/07/19 documented as of this encounter
--- OUTSIDE RECORDS SUMMARY | 2024-05-31 19:27 | External Medical Summary ---
Author Name Unknown Address Unknown Organization [id number]:LABORATORY [facility] [place] - [address] [place] [address] Laboratory Report Ordering Provider Test Date Status BELGICAEMMA 12/31/2023 10:21:52 Final Observation Date Value Abnormality Reference (Units ) Status BUN 12/31/2023 10:21:52 12 6-20 (mg/dL) Final Creatinine 12/31/2023 10:21:52 0.9 0.6-1.2 (mg/dL) Final Glomerular filtration rate/1.73 sq M.predicted [Volume Rate/Area] in Serum, Plasma or Blood by Creatinine-based formula (CKD-EPI) 12/31/2023 10:21:52 >90 >=60 (mL/min) Final eGFR is calculated based on the CKD-EPI 2020 equation Sodium 12/31/2023 10:21:52 139 135-146 (m mol/L) Final Potassium 12/31/2023 10:21:52 4.2 3.5-5.1 (m mol/L) Final Cl 12/31/2023 10:21:52 100 98-107 (mm ol/L) Final CO2 12/31/2023 10:21:52 28 22-32 (mmo l/L) Final Anion gap 12/31/2023 10:21:52 11 7-15 (mmol /L) Final Glucose 12/31/2023 10:21:52 86 70-120 (mg /dL) Final Calcium 12/31/2023 10:21:52 9.9 8.4-10.2 ( mg/dL) Final Performing Location LABORATORY [facility] [place] - [address] [place] [address]
[2024-05-31] MEDS: SODIUM CHLOR 7% 4 ML NEB NEB SCH (19:32)
[2024-05-31] MEDS: guaiFENesin 600 MG TABCR PO SCH (19:43)
[2024-05-31] MEDS: DOXYCYCLINE HYCLATE 100 MG CAP PO SCH (19:43)
[2024-06-01] MEDS: ACETAMINOPHEN 325 MG TAB PO PRN (04:20)
[2024-06-01] MEDS: CHOLECALCIFEROL 25 MCG (1000 UNITS) TAB PO SCH (07:54)
[2024-06-01] MEDS: MULTIVITAMIN TAB PO SCH (07:54)
[2024-06-01] MEDS: ASCORBIC ACID 500 MG TAB PO SCH (07:54)
--- NOTE | 2024-06-01 08:51 | CT Scan Report ---
CT OF THE CHEST WITHOUT IV CONTRAST CLINICAL HISTORY: concern for pneumonia, rule out underlying lesion COMPARISON STUDY: Chest radiograph May 31, 2024. CT DOSE: 644.46 mGy.cm TECHNIQUE: Axial images of the chest were obtained without IV contrast. Images were reviewed in the axial, sagittal, and coronal planes. IV contrast was not administered for this examination. Automat ed exposure control was utilized for the study. A dose lowering technique was utilized adhering to t he principles of ALARA. FINDINGS: A mildly enlarged right paratracheal lymph node measures 1.7 x 1.2 cm. This contains a fat ty hilum. Prominent right hilar nodes are suboptimally assessed on unenhanced exam. Size of the heart is normal. There is no pericardial effusion. There is no pneumothorax or pleural effusion. The centr al airways are patent. Dense consolidation within the anterior segment of the right upper lobe measur es 8.8 x 4.4 cm in extent. There are air bronchograms. Adjacent alveolar opacities are present. There are mild alveolar opacities within the right lower lobe as well as a 2.9 cm focus of consolidation w ithin the left lower lobe with adjacent tree-in-bud nodules. No cavitation is present. Bony thorax is unremarkable. Visualized portions of the upper abdomen are also unremarkable. IMPRESSION: 1. Dense consolidation within the anterior segment of the right upper lobe. Additional scattered airs pace opacities including a small focus of consolidation within the left lower lobe. No central obstru cting mass. The findings favor multifocal pneumonia. A chest CT in 2 months to ensure resolution is r ecommended. 2. Mildly enlarged right paratracheal and right hilar lymph nodes which are likely reactive. These ca n be assessed on follow-up CT. 3. No pleural effusion. ACT 112: Negative or not required by law. Electronically signed by: Quinten Gifford M.D. 06/01/2024 8:50 AM
[2024-06-01 09:11] LABS: Hematocrit (blood only) 37.6 % (42.0-52.0); Hemoglobin 13.1 g/dl (14.0-18.0); Mean Corpuscular Hemoglobin 32.2 pg (25.0-34.0); Mean Corpuscular Hgb Conc 34.8 g/dL (32.0-36.0); Mean Corpuscular Volume 92.4 fL (80.0-100.0); Mean Platelet Volume 8.8 fL (9.4-12.4); Platelet Count 446 K/uL (130-400); RDW Coefficient of Variation 11.8 % (11.5-14.5); RDW Standard Deviation 39.8 fL (36.4-46.3); Red Blood Count 4.07 M/uL (4.70-6.10); White Blood Count 6.55 K/ul (4.8-10.8)
[2024-06-01 09:44] LABS: BUN Creatinine Ratio 12.2 (10-20); Calcium 9.6 mg/dl (8.6-10.3); Creatinine Clr Calc Pharmacy 116.2 ml/min; Magnesium 2.2 mg/dl (1.7-2.4); Phosphorus 3.1 mg/dl (2.5-4.9); Potassium 3.5 mmol/L (3.5-5.1)
[2024-06-01] MEDS: IBUPROFEN 600 MG TAB PO PRN (10:04)
[2024-06-01] MEDS: AZITHROMYCIN 250 MG TAB PO SCH (10:05)
[2024-06-01] MEDS ORDERED: ALBUT/IPRATROP 3MG/0.5MG NEB 3 ML VIAL NEB PRN (10:08)
[2024-06-01] MEDS: cefTRIAXone SODIUM 2,000 MG/50 ML BAG IV SCH (11:14)
--- NOTE | 2024-06-01 13:11 | Hospitalist Progress Note ---
Date of Service June 01, 2024 Assessment & Plan (1) Community acquired pneumonia: Plan Edmar Chin is a 43y/o M with PMHx significant for dyslipidemia, chronic rhinitis and JONI on CPAP who presented to the ED for evaluation of intermittent fevers/productive cough and was found to have pneumonia. Community-Acquired Pneumonia: Patient presented with cough, fever for several days Chest x-ray concerning for right perihilar opacity, left basilar opacity. CT chest showed dense consolidation within anterior segment of right upper lobe. No Leukocytosis present Continue on Rocephin and azithromycin Continue airway clearance therapy with incentive spirometry, flutter valve, as needed DuoNebs Monitor oxygenation; supplemental oxygen as needed Discussed with patient that he will need CT chest without contrast in 2 months to ensure resolution of the pneumonia; patient agreeable with it. Follow-up with PCP. Other Chronic Medical Conditions: JONI --> Continue CPAP HS. No other home medications to be continued at this time. DVT Prophylaxis: SQ Lovenox Code Status: FULL CODE PCP: Panda Banegas MD Disposition: Admit to Med/Tele, likely to be hospitalized for 2-3 days depending on his clinical course. Please note the above document was generated using voice recognition software. It may contain grammatical, syntax or spelling errors. Any formal questions or concerns about the content, text or information contained within the body of this dictation should be directly addressed to the provider for clarification Admission and Anticipated Discharge Date Admission Date: May 31, 2024 Subjective Patient seen and examined at bedside. He reports she is slightly feeling better compared to yesterday Reports cough with whitish sputum Saturating well on room air; hemodynamic stable Review of Systems Review of Systems: All systems reviewed & are unremarkable except as noted in Subjective Physical Exam Physical Exam: Constitutional: Alert oriented x 3; not in distress. Respiratory: Decreased breath sound on right mid lung field. Cardiovascular: RRR, no murmur, no edema Vessels: no JVD or carotid bruit Chest: normal inspection of chest Abdomen: normal bowel sounds, soft, nontender, no hepatosplenomegaly Musculoskeletal: no cyanosis or clubbing, extremities motor strength 5/5 Skin: no rashes, warm and dry normal turgor Neurologic: PERRL, EOMI, accommodation nl, no face palsy, no dysarthria CN's II- XI intact bilaterally and moves all extremities Psychiatric: A+Ox3, euthymic affect Results & Data Results & Data Vital Signs (Past 12 Hours) Vital Signs Temp Pulse Pulse Resp BP BP Pulse Ox 06/01/24 11:21 36.6 C 75 18 148/91 H 94 06/01/24 07:56 36.8 C 76 18 144/82 H 96 06/01/24 07:29 80 16 97 06/01/24 07:10 06/01/24 07:05 87 06/01/24 02:37 37.0 C 78 18 125/77 97 O2 Del Method 06/01/24 11:21 Room Air 06/01/24 07:56 Room Air 06/01/24 07:29 Room Air 06/01/24 07:10 Room Air 06/01/24 07:05 06/01/24 02:37 Room Air, CPAP (1) Community acquired pneumonia Laterality: right Lung location: middle lobe of lung Qualified Code(s): J18.9 - Pneumonia, unspecified organism
--- OUTSIDE RECORDS SUMMARY | 2024-06-01 17:32 | External Medical Summary ---
Author Name Unknown Address Unknown Organization [id number]:[facility] [place] [address] [place] [address] Laboratory Report Ordering Provider Test Date Status SHERRI PEREZ 05/31/2024 08:21:33 Final Observation Date Value Abnormality Reference (Units ) Status BUN 05/31/2024 08:21:33 12 6-20 (mg/dL) Final Creatinine 05/31/2024 08:21:33 0.9 0.6-1.2 (mg/dL) Final Glomerular filtration rate/1.73 sq M.predicted [Volume Rate/Area] in Serum, Plasma or Blood by Creatinine-based formula (CKD-EPI) 05/31/2024 08:21:33 >90 >=60 (mL/min) Final eGFR is calculated based on the CKD-EPI 2020 equation. Sodium 05/31/2024 08:21:33 136 135-146 (m mol/L) Final Potassium 05/31/2024 08:21:33 4.5 3.5-5.1 (m mol/L) Final Cl 05/31/2024 08:21:33 100 98-107 (mm ol/L) Final CO2 05/31/2024 08:21:33 22 22-32 (mmo l/L) Final Anion gap 05/31/2024 08:21:33 14 7-15 (mmol /L) Final Glucose 05/31/2024 08:21:33 100 70-120 (mg /dL) Final Albumin 05/31/2024 08:21:33 4.5 3.8-5.0 (g /dL) Final AST (Aspartate aminotransferase) 05/31/2024 08:21:33 23 10-50 (U/L) Final Alk Phos 05/31/2024 08:21:33 77 35-130 (U/ L) Final Bilirubin, Total 05/31/2024 08:21:33 0.3 <=1 .2 (mg/dL) Final Calcium 05/31/2024 08:21:33 9.4 8.4-10.2 ( mg/dL) Final Protein 05/31/2024 08:21:33 7.3 6.0-8.3 (g /dL) Final ALT (Alanine aminotransferase) 05/31/2024 08:21:33 26 10-50 (U/L) Final Performing Location [facility] [place] - [address] [facility] [address]
--- OUTSIDE RECORDS SUMMARY | 2024-06-01 17:33 | External Medical Summary ---
Author Name Unknown Address Unknown Organization K01:LABORATORY [facility] [place] [place] - [address] [place] [address] Laboratory Report Ordering Provider Test Date Status SHERRI PEREZ 05/31/2024 08:21:33 Final Observation Date Value Abnormality Reference (Units ) Status WBC, Total 05/31/2024 08:21:33 9.45 4.00-10.80 (K/uL) Final RBC 05/31/2024 08:21:33 4.42 4.50-5.25 (M/uL) Final Hemoglobin 05/31/2024 08:21:33 13.9 Below low normal 14.0-16.8 (g/dL) Final HCT 05/31/2024 08:21:33 42.5 40.0-48.4 (%) Final MCV 05/31/2024 08:21:33 96.2 82.0-99.5 (fL) Final MCH 05/31/2024 08:21:33 31.4 27.0-34.0 (pg) Final MCHC 05/31/2024 08:21:33 32.7 32.0-36.0 (g/dL) Final RDW 05/31/2024 08:21:33 11.7 11.5-15.5 (%) Final Platelets 05/31/2024 08:21:33 493 Above high normal 140-400 (K/uL) Final MPV 05/31/2024 08:21:33 9.0 6.6-11.1 (fL) Final Nucleated erythrocytes/100 leukocytes [Ratio] in Blood by Automated count 05/31/2024 08:21:33 0 <=0 (/100 WBCs) Final Performing Location LABORATORY [facility] [place] [place] - [address] [place] [address]
--- OUTSIDE RECORDS SUMMARY | 2024-06-01 17:33 | External Medical Summary ---
Author Name Unknown Address Unknown Organization K01:[facility] [place] [address] [place] [address] Laboratory Report Ordering Provider Test Date Status SHERRI PEREZ 05/31/2024 08:21:33 Final Observation Date Value Abnormality Reference (Units ) Status SYNC LEUKOCYTES IN BLOOD BY AUTOMATED COUNT 05/31/2024 08:21:33 9.45 4.00-10.80 (K/uL) Final Segs 05/31/2024 08:21:33 74.1 40.0-75.0 (%) Final Lymphs % 05/31/2024 08:21:33 16.0 Below low normal 18.0-42.0 (%) Final Monos 05/31/2024 08:21:33 7.2 1.0-11.0 (%) Final Eosinophils 05/31/2024 08:21:33 2.1 0.0-6.0 (%) Final Basos 05/31/2024 08:21:33 0.2 0.0-2.0 (%) Final Immature Granulocyte, Percent 05/31/2024 08:21:33 0.4 0.0-2.0 (%) Final Absolute Segs 05/31/2024 08:21:33 7.00 1.80-7.70 (K/uL) Final Lymphs, absolute 05/31/2024 08:21:33 1.51 1.00-4.80 (K/ul) Final Monos, Abs 05/31/2024 08:21:33 0.68 0.00-1.10 (K/uL) Final Eos, Abs 05/31/2024 08:21:33 0.20 0.00-0.70 (K/uL) Final Basos, Abs 05/31/2024 08:21:33 0.02 0.00-0.20 (K/uL) Final Immature Granulocytes, Number 05/31/2024 08:21:33 0.04 0.00-0.20 (K/uL) Final Performing Location [facility] [place] - [address] [facility] [address]
[2024-06-02 07:06] LABS: Basophils # (auto) 0.02 K/uL (0.00-0.20); Basophils % (auto) 0.4 %; Eosinophils # (auto) 0.21 K/uL (0.00-0.50); Hematocrit (blood only) 39.6 % (42.0-52.0); Hemoglobin 14.1 g/dl (14.0-18.0); Immature Granulocytes # (auto) 0.02 K/uL (0.01-0.20); Immature Granulocytes % (auto) 0.4 %; Lymphocytes # (auto) 1.61 K/uL (1.20-3.40); Lymphocytes % (auto) 30.3 %; Mean Corpuscular Hemoglobin 32.3 pg (25.0-34.0); Mean Corpuscular Hgb Conc 35.6 g/dL (32.0-36.0); Mean Corpuscular Volume 90.6 fL (80.0-100.0); Mean Platelet Volume 8.5 fL (9.4-12.4); Monocytes # (auto) 0.39 K/uL (0.11-0.59); Monocytes % (auto) 7.3 %; Neutrophils # (auto) 3.06 K/uL (1.40-6.50); Neutrophils % (auto) 57.6 %; Platelet Count 464 K/uL (130-400); RDW Coefficient of Variation 11.6 % (11.5-14.5); RDW Standard Deviation 38.5 fL (36.4-46.3); Red Blood Count 4.37 M/uL (4.70-6.10); White Blood Count 5.31 K/ul (4.8-10.8)
[2024-06-02] MEDS ORDERED: LOPERAMIDE HCL 2 MG CAP PO PRN (07:23)
[2024-06-02 07:31] LABS: BUN Creatinine Ratio 16.3 (10-20); Calcium 9.5 mg/dl (8.6-10.3); Creatinine Clr Calc Pharmacy 130.5 ml/min; Immunoglobulin A 136.9 mg/dl (70-400); Immunoglobulin G 1032.7 mg/dl (635-1741); Immunoglobulin M 102.9 mg/dl (45-281); Potassium 3.7 mmol/L (3.5-5.1)
[2024-06-02 07:45] VITALS: RESP 19
[2024-06-02] MEDS: LOPERAMIDE HCL 2 MG CAP PO STA (07:57)
--- NOTE | 2024-06-02 08:25 | Hospitalist Progress Note ---
Date of Service June 02, 2024 Assessment & Plan (1) Community acquired pneumonia: Plan Edmar Chin is a 43y/o M with PMHx significant for dyslipidemia, chronic rhinitis and JONI on CPAP who presented to the ED for evaluation of intermittent fevers/productive cough and was found to have pneumonia. Community-Acquired Pneumonia: Patient presented with cough, fever for several days Chest x-ray concerning for right perihilar opacity, left basilar opacity. CT chest showed dense consolidation within anterior segment of right upper lobe. No Leukocytosis present IgG, IgA and IgM within normal limits Patient treated with IV antibiotic with Rocephin and azithromycin, airway clearance therapy(with flutter valve/incentive spirometry). He did not require supplemental oxygen. Patient to be discharged on oral antibiotics to complete the course. He will need to follow-up with his PCP and obtain CT chest without contrast in 2 months to ensure resolution. Other Chronic Medical Conditions: JONI --> Continue CPAP HS. No other home medications to be continued at this time. DVT Prophylaxis: SQ Lovenox Code Status: FULL CODE PCP: Panda Banegas MD Please note the above document was generated using voice recognition software. It may contain grammatical, syntax or spelling errors. Any formal questions or concerns about the content, text or information contained within the body of this dictation should be directly addressed to the provider for clarification Admission and Anticipated Discharge Date Admission Date: May 31, 2024 Subjective Patient seen and examined at bedside. Comfortable; not in distress. Denies fever, chills, chest pain, shortness of breath, abdominal pain or urinary symptoms. No significant overnight events Review of Systems Review of Systems: All systems reviewed & are unremarkable except as noted in Subjective Physical Exam Physical Exam: Constitutional: Alert oriented x 3; not in distress. Respiratory: Decreased breath sound on right mid lung field. Cardiovascular: RRR, no murmur, no edema Vessels: no JVD or carotid bruit Chest: normal inspection of chest Abdomen: normal bowel sounds, soft, nontender, no hepatosplenomegaly Musculoskeletal: no cyanosis or clubbing, extremities motor strength 5/5 Skin: no rashes, warm and dry normal turgor Neurologic: PERRL, EOMI, accommodation nl, no face palsy, no dysarthria CN's II- XI intact bilaterally and moves all extremities Psychiatric: A+Ox3, euthymic affect Results & Data Results & Data Vital Signs (Past 12 Hours) Vital Signs Temp Pulse Pulse Resp BP BP Pulse Ox 06/02/24 07:44 36.8 C 91 H 19 153/90 H 93 06/02/24 07:03 91 H 16 98 06/02/24 02:43 36.5 C 75 18 116/79 96 06/01/24 22:34 36.7 C 81 18 131/79 97 06/01/24 22:12 06/01/24 21:53 83 O2 Del Method 06/02/24 07:44 Room Air 06/02/24 07:03 Room Air 06/02/24 02:43 Room Air 06/01/24 22:34 Room Air, CPAP 06/01/24 22:12 Room Air 06/01/24 21:53 (1) Community acquired pneumonia Laterality: right Lung location: middle lobe of lung Qualified Code(s): J18.9 - Pneumonia, unspecified organism
[2024-06-02 11:38] VITALS: BP 120/76; TEMP 98.1; O2SAT 96
[2024-06-02 12:30] VITALS: PULSE 87
--- NOTE | 2024-06-02 13:53 | Discharge Summary ---
Date of Service June 02, 2024 Admission HPI Per Admitting Provider [place] is a 43y/o M with PMHx significant for dyslipidemia, chronic rhinitis and JONI on CPAP who presented to the ED for evaluation of intermittent fevers and productive cough. History obtained from patient, at bedside and associated chart review. Patient seen at bedside with Dr. Stallings. Patient has been dealing with intermittent fevers and an ongoing productive cough since the of this month. Most recent fever was 101F this morning. He was started on a 10-day oral Augmentin course on the in addition to a 10- day oral doxycycline course just yesterday. He has been lethargic and feeling we ak since this all started. He has been feeling dizzy following coughing spells; he had passed his ambulatory trial in the ED however he was tachypneic and presyncopal per discussion with the ED provider. He has not been hypoxic however. He endorses some chest discomfort and chest congestion as well as pain in his right chest wall from coughing. No vomiting except some phlegm production. Some headaches and mild sinus congestion which he has been taking Sudafed for without much improvement. No sore throat. He has been dealing with some diarrhea since starting the Augmentin but denies any urinary issues. Patient works at [employer] --> he works nightshift outside. No smoking history, rare alcohol use. No recreational drug use or medication allergies that he is aware of. No prior oxygen use at home but he does use a CPAP at night for JONI. Admission Exam Per Admitting Provider General: Not in distress Eyes: PERRL, conjunctivae normal, not pale, anicteric sclerae, EOM intact bilaterally ENMT: External ear and nose normal, oropharynx normal Respiratory: Normal respiratory effort, no respiratory distress, few crackles, +cough Cardiovascular: RRR S1 S2 Gastrointestinal (Abdomen): Abdomen is not distended, soft, non-tender to palpation, no guarding, no palpable hepatosplenomegaly, normal bowel sounds Musculoskeletal: No pedal edema Neurologic: Alert and oriented x 3, No focal weakness, sensation grossly intact Psychiatric: Euthymic affect Principal Diagnosis Pneumonia Discharge Exam Constitutional: Alert oriented x 3; not in distress. Respiratory: Decreased breath sound on right mid lung field. Cardiovascular: RRR, no murmur, no edema Vessels: no JVD or carotid bruit Chest: normal inspection of chest Abdomen: normal bowel sounds, soft, nontender, no hepatosplenomegaly Musculoskeletal: no cyanosis or clubbing, extremities motor strength 5/5 Skin: no rashes, warm and dry normal turgor Neurologic: PERRL, EOMI, accommodation nl, no face palsy, no dysarthria CN's II- XI intact bilaterally and moves all extremities Psychiatric: A+Ox3, euthymic affect Discharge Data Allergies Allergy/AdvReac Type Severity Reaction Status Date / Time bee venom protein (honey bee) Allergy Severe SOB/Hives/S Unverified 05/31/24 12:11 welling Consultations 05/31/24 11:43 ED Decision to Admit Stat Ordered Studies 06/01/24 07:43 CT chest without contrast [CT chest diagnostic wo con] Routine Hospital Course (1) Community acquired pneumonia: Hailey Chin is a 43y/o M with PMHx significant for dyslipidemia, chronic rhinitis and JONI on CPAP who presented to the ED for evaluation of intermittent fevers/productive cough and was found to have pneumonia. Community-Acquired Pneumonia: Patient presented with cough, fever for several days Chest x-ray concerning for right perihilar opacity, left basilar opacity. CT chest showed dense consolidation within anterior segment of right upper lobe. No Leukocytosis present IgG, IgA and IgM within normal limits Patient treated with IV antibiotic with Rocephin and azithromycin, airway clearance therapy(with flutter valve/incentive spirometry). He did not require supplemental oxygen. Patient to be discharged on oral antibiotics to complete the course. He will need to follow-up with his PCP and obtain CT chest without contrast in 2 months to ensure resolution. Please note the above document was generated using voice recognition software. It may contain grammatical, syntax or spelling errors. Any formal questions or concerns about the content, text or information contained within the body of this dictation should be directly addressed to the provider for clarification Total Time Total Time Spent Total Time Spent (In Minutes): 35 Total Time Includes: Examination of the Patient, Discharge Planning, Medication Reconciliation, Communication With Other Providers and Other Discharge Plan Discharge Items Patient Disposition: Home - Self-Care Reason For Visit: PNEUMONIA Discharge Diagnosis: Pneumonia Activity: Resume your previous activity Non-emergency contact: Primary Care Provider Call non-emergency contact if: you have any medication questions and your symptoms worsen Follow-up/Referrals: Panda Banegas MD [Primary Care Provider] - Diet: Regular Addtl Attending Provider Instructions: You were admitted to the hospital due to pneumonia. You are treated with IV antibiotics during the hospitalization. You are prescribed following medication; Cefdinir 300 mg twice a day for 5 days Azithromycin 250 mg(2 tablets) once tomorrow. Please repeat CT chest in 2 months to ensure resolution of the pneumonia. An appointment with your primary care doctor will be made for you for next week. If your symptoms have not resolved; please discuss further workup and referral to pulmonology. Pending Studies at Discharge: Yes (IgE) Stand-Alone Forms: [facility] [employer], Smoking Cessation Medications and DC Order Prescriptions: New azithromycin 250 mg Tablet 500 mg PO QAM 1 Days Qty: 2 0RF Advanced Probiotic 625 mg (10 billion cell) Capsule 2 cap PO DAILY 5 Days Qty: 10 0RF cefdinir 300 mg capsule 300 mg PO BID 5 Days Qty: 10 0RF Continued multivitamin Tablet 1 tab PO DAILY [id number]-VFB-KV-acetaminophen 7.5-60-30-1,000 mg/30 mL Liquid 30 ml PO HS PRN (Reason: Sick/Illness) melatonin 3 mg Tablet 3 mg PO HS PRN (Reason: Sleep) selenium 200 mcg Tablet 200 mcg PO DAILY flaxseed oil 1,000 mg Capsule 1,000 mg PO DAILY Rx Instructions: administer with a meal ascorbic acid (vitamin C) [Vitamin C] 500 mg Tablet 500 mg PO DAILY benzonatate 100 mg capsule 100 mg PO TID PRN (Reason: Cough) ibuprofen 200 mg Tablet 200 mg PO Q6H PRN (Reason: Pain) epinephrine 0.3 mg/0.3 mL auto-injector 0.3 mg IM UD PRN (Reason: Allergic Reaction) elderberry fruit 200 mg Capsule 200 mg PO DAILY cholecalciferol (vitamin D3) [Vitamin D3] 25 mcg (1,000 unit) Tablet 25 mcg PO DAILY guaifenesin [Mucinex] 1,200 mg Tablet Extended Release 12hr 1,200 mg PO Q12H PRN (Reason: Congestion) omega 6-dmg-gzt-fish oil [Fish Oil] 1,200 (144-216) mg Capsule 1 cap PO DAILY coQ10 (ubiquinol) 100 mg Capsule 100 mg PO BID turmeric 400 mg Capsule 400 mg PO DAILY vitamin K2 100 mcg Capsule 100 mcg PO DAILY Discontinued doxycycline hyclate 100 mg capsule 100 mg PO BID Rx Instructions: Start Date 05/30/24 x10 day supply amoxicillin-pot clavulanate 875-125 mg tablet 1 tab PO BID Rx Instructions: Start Date 05/26/24 x10 day supply Discharge Orders: Discharge Order (Routine); Ordered 06/02/24 Ordered By: Jose Oliveros Admission Data Admit Date/Time: 05/31/24 12:27 Attending Provider: Jose Oliveros Admit Provider: Elis Stallings I. Primary Care Provider: Panda Banegas Other Providers: Elis Stallings I. Other Interventions: Discharge Summary Assessment (RN) Last Done: 06/02/24 12:33
== END 2024-06-02 13:44 | disposition home or self-care (01) | DRG 195 ==
LOC: ED 09:31 → SUATTDRO 12:27 → 2N 12:27